=== PATIENT | male | born 1940 | race Caucasian/White ===

== ENCOUNTER → 2020-06-17 09:54 | Outpatient (BNVA) | payer MEDICARE, OTHER, SELFPAY | PROVIDERS: Referring Provider Dermatology; Visit Provider Dermatology | DX: Z85.828 Personal history of other malignant neoplasm of skin (principal); Z12.83 Encounter for screening for malignant neoplasm of skin; L57.0 Actinic keratosis; L82.1 Other seborrheic keratosis; I87.8 Other specified disorders of veins; L81.4 Other melanin hyperpigmentation | CPT/HCPCS: 17000; 17003; 99203 ==

== ENCOUNTER 2020-10-08 09:00 | Outpatient (CLI) | payer MEDICARE, OTHER, SELFPAY ==
--- NOTE | 2020-10-08 14:11 | ONC CON_ITS ---
Dr. Evans New Patient Note Patient: Benji Jensen Unit #: [id number]: 1940 Dicatated By: Douglas Evans M.D.Date of Visit: Oct 08, 2020 Onc MED New Patient/Consult Referring Physician: Yamil Day Chief Complaint: Prostate cancer. History of Present Illness: This is an 80-year-old man with [place] score 7 (4+3) adenocarcinoma of the prostate, diagnosed by MRI directed biopsy of the prostate in August 2016. By clinical evaluation his disease is stage IIC (T2c, N0, M0). He had been followed by Dr. Yamil Day for an elevated PSA level. His initial prostate biopsy which was done around the year 1999 was benign. PSA at that point was 6.5 ng/mL, but it subsequently declined to 1.2 ng/mL. The PSA gradually increased thereafter. By September 2015 it was back up to 4.8. As of June 2016 it was up to 5.3 ng/mL. MRI at that point showed suspicious abnormality in the left peripheral zone. On September 08, 2016 he underwent MRI directed biopsy of the prostate. His prebiopsy PSA was 6.4. Pathology showed adenocarcinoma of the usual acinar type involving multiple cores. The core from the left mid prostate, she apparently corresponded to the MRI abnormality, showed a Kim score of 7 (4+3). Cores from the right base showed [place] score 7 (3+4). Cores from the right apex, left apex, and left base all showed [place] score 6 (3+3). His PTEN-erg genetic tests showed very low risk disease. With those findings, he was followed on observation/expectant management. During subsequent follow-up there was just gradual increase in the PSA level. As of July 2018 it was 8.5 ng/mL and as of July 2019 it was 10.5 ng/mL. On the most recent study, from August 10, 2020 it had increased more significantly, to 13.4 ng/mL, with his PSA doubling time calculating to 4 years. His staging Ax[facility] PET/CT on August 10, 2020 showed prostatomegaly with abnormal hypermetabolism diffusely involving the prostate and with focal hypermetabolism within the left peripheral zone with maximum SUV 13.4. An additional focus of increased uptake within the right peripheral zone had a maximum SUV of 8.6. A probable BPH nodule was noted to indent the base of the urinary bladder. There was no evidence of tumor involvement in the seminal vesicles and there was no gross evidence of extraprostatic tumor extension. Mildly prominent bilateral inguinal lymph nodes had mildly increased radiotracer uptake favoring reactive disease with the largest node measuring 1.0 x 1.1 cm with maximum SUV 2.9. There were no suspicious lymph nodes noted within the abdomen or pelvis and there were no concerning osseous lesions. He has been feeling good generally, though he has longstanding peripheral neuropathy affecting the lower extremities and he has some associated chronic lower extremity edema which does limit his activity somewhat. His ECOG score is 1. He has good appetite. His weight has been stable. He has no fever, night sweats, or hot flashes. He has no significant voiding symptoms. He does have nocturia 1 or 2 times, that has been a stable pattern. He has not been aware of any significant change in his bladder function during the past several years. He is a little short of breath with activity. He has a history of atrial fibrillation for which he has remained on chronic anticoagulation. He has not had chest pain. He recently had some diarrhea, but that was associated with metformin, and it does appear to have resolved. He has some back pain and he also has neuropathy pain along with numbness/tingling in the lower extremities. He says the neuropathy now is beginning to affect his hands as well. He also has some difficulty with balance. He has some chronic anxiety. Past Medical History: His medical history includes atrial fibrillation, chronic anxiety, hypertension, hypertriglyceridemia, peripheral neuropathy, prostate cancer, and type II diabetes. Past Surgical History: His surgical/procedural history includes MRI directed biopsy of the prostate in 2016 and a cardiac ablation procedure for atrial fibrillation. Medications: Eliquis 1 Tablet (of 5 mg) Oral b.i.d., hydroCHLOROthiazide 1 Tablet (of 25 mg) Oral daily, Lisinopril 1 Tablet (of 10 mg) Oral daily, LORazepam 1 Tablet (of 1 mg) Oral at bedtime Allergies: No Known Allergies. Social History: Mr. Jensen is . He is a non-smoker. He does not drink alcohol. Family History: Father had COPD and mother had heart disease. A brother committed suicide. One sister is in good health at age 72. Review Of Symptoms: Constitutional - He generally feels okay. His energy is not great. He has some activity limitations related to wearing orthotics. He is able to do light outside work. His appetite is good and his weight is stable. No fever, night sweats, or hot flashes. ECOG score is 1, Eyes - He has noticed some decline in visual acuity. 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 He also complains of tinnitus. No sinus congestion/drainage. No mouth sores. No sore throat or difficulty swallowing. His hearing has decreased, Hematologic/Lymphatic - He bruises easily, Respiratory - He has a little shortness of breath with activity. No cough. No pleuritic pain or hemoptysis, Cardiovascular - No angina pain. He has a history of atrial fibrillation and his heart is irregular, Gastrointestinal - No nausea or vomiting. No heartburn or acid reflux. He had diarrhea while taking metformin, but that has improved. No blood in the stool or black stools, Genitourinary (M) - No dysuria or hematuria. No urinary frequency. He has nocturia x1 or 2. No urgency or incontinence, Musculoskeletal - He has some back pain and he has pain in his legs and feet, Integumentary - No skin complications, Neurologic - No headache or dizziness. He has longstanding neuropathy with numbness/tingling and sometimes pain in his legs and feet. It is now starting to affect his hands and fingers. No other focal neurologic symptoms, Psychiatric - He has some anxiety. No depression. No insomnia. Vital Signs: Performed on Oct 08, 2020 09:52: 0, 29.70, 2.41 sq.m, 76.00 in, 97 %, 85 /min, 18 /min, 162/86 mm(hg) (HIGH), 98.2 F (LOW), and 244.0 lbs (HIGH). Physical Examination: Constitutional - He looks pretty good generally, though he does have somewhat limited mobility, Eyes - Sclerae nonicteric. Conjunctivae clear, ENMT - No lesions noted in the oral cavity, Hematologic/Lymphatic - No cervical, clavicular, or axillary adenopathy, Respiratory - Lungs are clear with good air movement bilaterally, Cardiovascular - Heart rhythm is irregular. There is no murmur, gallop, or rub noted, Abdomen - Soft and non-tender. Liver and spleen are not enlarged. There is no abdominal mass or ascites noted and there is no inguinal adenopathy, Extremities - There is 2+ lower extremity edema, which appears chronic, Integumentary - No rashes. No suspicious skin lesions noted, Neurologic - He has difficulty ambulating due to the neuropathy in the lower extremities. I did not attempt to perform a detailed neurologic exam. He does not appear to have any other obvious deficits. Impression: 1. Patient with Kim score 7 (4+3) adenocarcinoma of the prostate, diagnosed by MRI directed biopsy of the prostate in August 2016. His PTEN-erg genetic studies were very low risk, and he was followed on observation/expectant management. 2. During follow-up there has been gradual increase in the PSA level, now to 13.3 ng/mL, representing a doubling time of 4 years. His staging Axumin PET/CT shows abnormal hypermetabolism diffusely involving the prostate with the greatest uptake within the left peripheral zone, maximum SUV 13.4, and with an additional focus of increased uptake was noted within the right peripheral zone, maximum SUV 8.6. There were no other areas of significant uptake on that study. As such, by clinical evaluation his disease appears to be stage IIC (T2c, N0, M0). His other medical illnesses include: 3. Hypertension. 4. Hypertriglyceridemia. 5. Type 2 diabetes. 6. He has longstanding peripheral neuropathy. Plan: The pathology results, the Ax[facility] PET/CT findings, and lab results were reviewed with the patient and we discussed the clinic complications. His prostate cancer was initially diagnosed in 2015. His disease was involving both lobes but it was confined to the prostate. His prognostic indicators were favorable, and he has been followed on observation/expectant management. He has had a gradual further increase in the PSA level, with his doubling time calculating to 4 years. By Axumin PET/CT, his disease still appears to be confined to the prostate. He is aware that his disease would potentially still be treatable with radiation. However, he does have some coexisting morbidity, the most significant of which is the peripheral neuropathy. He also appears to have no local symptoms associated with prostate cancer, and he has not been aware of any significant change in his bladder function over the past several years. As such, I think it is very reasonable to continue to manage this with observation, and he actually is very comfortable with continuing with that approach. I will present this to the radiation oncologist and I will arrange for a formal consultation as he deems appropriate. Otherwise, I will just plan to monitor him at 3-month intervals. Signed By: Douglas Evans M.D. <<Signature on File>>
== END 2020-10-08 09:01 | disposition home or self-care (01) ==
LOC: ONCMED 09:04
PROVIDERS: PCP Family Medicine; Visit Provider Internal Medicine Medical Oncology
DX: C61 Malignant neoplasm of prostate (principal); R97.21 Rising PSA following treatment for malignant neoplasm of prostate; E11.42 Type 2 diabetes mellitus with diabetic polyneuropathy; I10 Essential (primary) hypertension; E78.1 Pure hyperglyceridemia; I48.91 Unspecified atrial fibrillation; Z79.01 Long term (current) use of anticoagulants

== ENCOUNTER 2020-11-03 09:52 | Outpatient (CLI) | payer MEDICARE, OTHER, SELFPAY ==
--- NOTE | 2020-11-03 11:17 | N.ONRAD NP_ITS ---
Radiation Oncology Consultation Patient Name: Benji Jensen Date of : 1940 Date of Service: 11/03/2020 Attending Physician: Henry Devries M.D. Benji Jensen was seen in consultation this morning at the request of Douglas Evans M.D. for consideration of prostate radiotherapy for the management of unfavorable intermediate risk prostate cancer. He initially was identified to have an elevated PSA level (6.4 ng/mL) in June 2016. An acinar adenocarcinoma of the prostate gland (Kim pattern 4+3; left mid gland) was diagnosed. Within the TRUS biopsy specimen, additional cores demonstrated [place] patterns of 3+3 = 6 (3 specimens) and 3+4 = 7 (2 cores). The patient elected observation for initial management. In July, his PSA was 13.4 ng/mL. An F???18???Axumin PET scan was completed on September 14, 2020. Imaging failed to identify metastatic disease. I discussed the patient's AJCC clinical stage IIC (T1CN0) unfavorable immediate risk prostate cancer and the NCCN guidelines for observation in men with an estimated survival of less than 10 years. However, radiotherapy and androgen deprivation therapy (4 to 6 months) with or without brachytherapy is a treatment option. He would like to evaluate his choices treatment prior to making a final decision. Signed by: Dr. Henry Devries 11/03/2020 11:15:39 AM
== END 2020-11-03 09:53 | disposition home or self-care (01) ==
PROVIDERS: PCP Family Medicine; Visit Provider Radiology Radiation Oncology
DX: C61 Malignant neoplasm of prostate (principal)
CPT/HCPCS: 99214

== ENCOUNTER 2021-01-19 09:58 | Outpatient (CLI) | payer MEDICARE, OTHER, SELFPAY ==
[2021-01-19 11:00] LABS: Basophils % 0.5 %; Eosinophils # 0.1 10^3/uL (0.0-0.8); Eosinophils % 1.8 %; Hemoglobin 15.8 g/dL (11.7-16.6); Lymphocytes # 1.3 10^3/uL (0.8-4.8); Lymphocytes % 29.3 %; Mean Corpuscular HGB Conc 32.9 g/dL (30.0-36.0); Mean Corpuscular Volume 91.3 fL (80-94); Mean Platelet Volume 10.8 fL (7.4-10.4); Monocytes # 0.3 10^3/uL (0.2-0.9); Monocytes % 7.3 %; Neutrophils # 2.66 10^3/uL (1.8-7.7); Neutrophils % 60.9 %; Nucleated Red Blood Cells % 0 %; Platelet Count 173 10^3/cmm (130-400); Red Blood Count 5.26 10^6/uL (4.1-5.3); Red Cell Distribution Width 12.8 % (12.1-15.1); White Blood Count 4.4 10^3/uL (4.0-10.0)
== END 2021-01-19 09:59 | disposition home or self-care (01) ==
LOC: ONCMED 10:03
PROVIDERS: PCP Family Medicine; Visit Provider Nurse Practitioner
DX: C61 Malignant neoplasm of prostate (principal)
CPT/HCPCS: 85025

== ENCOUNTER 2021-01-20 05:57 | Outpatient (CLI) | payer MEDICARE, OTHER, SELFPAY ==
[2021-01-20] MEDS: lidocaine 1% INJ 20 mL INJECTION (08:41)
[2021-01-20] MEDS: goserelin acetate 10.8 mg Implant IM (08:52)
--- NOTE | 2021-01-21 06:52 | ONC FU_ITS ---
Dr. Evans Patient Follow-Up Note Patient: Benji Jensen Unit #: [id number]: 1940 Dicatated By: Douglas Evans M.D.Date of Visit:Jan 20, 2021 Onc Med Follow-up/Prog Note Chief Complaint: Prostate cancer. History of Present Illness: This is an 80-year-old man with [place] score 7 (4+3) adenocarcinoma of the prostate, diagnosed by MRI directed biopsy of the prostate in August 2016. By clinical evaluation his disease is stage IIC (T2c, N0, M0). He had been followed by Dr. Yamil Day for an elevated PSA level. His initial prostate biopsy which was done around the year 1999 was benign. PSA at that point was 6.5 ng/mL, but it subsequently declined to 1.2 ng/mL. The PSA gradually increased thereafter. By September 2015 it was back up to 4.8. As of June 2016 it was up to 5.3 ng/mL. MRI at that point showed suspicious abnormality in the left peripheral zone. On September 08, 2016 he underwent MRI directed biopsy of the prostate. His prebiopsy PSA was 6.4. Pathology showed adenocarcinoma of the usual acinar type involving multiple cores. The core from the left mid prostate, she apparently corresponded to the MRI abnormality, showed a [place] score of 7 (4+3). Cores from the right base showed Kim score 7 (3+4). Cores from the right apex, left apex, and left base all showed [place] score 6 (3+3). His PTEN-erg genetic tests showed very low risk disease. With those findings, he was followed on observation/expectant management. During subsequent follow-up there was just gradual increase in the PSA level. As of July 2018 it was 8.5 ng/mL and as of July 2019 it was 10.5 ng/mL. On the most recent study, from August 10, 2020 it had increased more significantly, to 13.4 ng/mL, with his PSA doubling time calculating to 4 years. His staging [facility] PET/CT on August 10, 2020 showed prostatomegaly with abnormal hypermetabolism diffusely involving the prostate and with focal hypermetabolism within the left peripheral zone with maximum SUV 13.4. An additional focus of increased uptake within the right peripheral zone had a maximum SUV of 8.6. A probable BPH nodule was noted to indent the base of the urinary bladder. There was no evidence of tumor involvement in the seminal vesicles and there was no gross evidence of extraprostatic tumor extension. Mildly prominent bilateral inguinal lymph nodes had mildly increased radiotracer uptake favoring reactive disease with the largest node measuring 1.0 x 1.1 cm with maximum SUV 2.9. There were no suspicious lymph nodes noted within the abdomen or pelvis and there were no concerning osseous lesions. I had seen him initially on 10/08/2020. At that time he was undecided between treating or observing the prostate cancer, but he did agree to meet with the radiation oncologist. Ultimately, he did opt to proceed with treatment, and with intermediate risk disease he is recommended to have 6 months of concurrent androgen deprivation therapy. He had already started his 14 days of bicalutamide. He has been feeling pretty good generally. His energy is about the same as that he may have a little more fatigue, attributable to his diabetes medication. His ECOG score is 1. He has good appetite. He is not having fever, night sweats, or hot flashes. He has no shortness of breath, cough, or chest pain. He does have chronic atrial fibrillation. He has no GI complaints other than his bowel function seem to be a little different, though still adequate. Bladder function also remains adequate, though he sometimes has urgency with urination. He has joint pain, mainly in the wrists and shoulders, and he has neuropathy pain in his legs and feet. Medications: Eliquis 1 Tablet (of 5 mg) Oral b.i.d., hydroCHLOROthiazide 1 Tablet (of 25 mg) Oral daily, Lisinopril 1 Tablet (of 10 mg) Oral daily, LORazepam 1 Tablet (of 1 mg) Oral at bedtime Allergies: No Known Allergies. Vital Signs: Performed on Jan 20, 2021 09:00 Height - 76.00 in BP - 135/85 mm(hg) Performed on Jan 20, 2021 08:04 Height - 76.00 in Weight - 236 lbs (LOW) BSA - 2.38 sq.m BMI - 28.73 Temperature - 97.2 F (LOW) Pulse - 96 /min Respiration - 17 /min BP - 160/106 mm(hg) (HIGH) O2 Sat - 97 % Pain - 0 Physical Examination: Constitutional - He looks pretty good generally, Eyes - Sclerae nonicteric. Conjunctivae clear, ENMT - No lesions noted in the oral cavity, Hematologic/Lymphatic - No cervical, clavicular, or axillary adenopathy, Respiratory - Lungs are clear with good air movement bilaterally, Cardiovascular - Heart rhythm is a little irregular. There is no murmur, gallop, or rub noted, Abdomen - Soft. Liver and spleen are not enlarged. There is no abdominal mass or ascites noted and there is no inguinal adenopathy, Extremities - There is mild lower extremity edema, Neurologic - He has difficulty ambulating due to the neuropathy in the lower extremities. Lab/Imaging: His repeat PSA level on 01/05/2021 was slightly higher at 16.3 ng/mL. Problem List: 1. Kim score 7 (4+3) adenocarcinoma of the prostate, diagnosed by MRI directed biopsy of the prostate in August 2016, by clinical evaluation now stage IIC (T2c, N0, M0). 2. Hypertension. 3. Hypertriglyceridemia. 4. Type 2 diabetes. 5. Atrial fibrillation. 6. He has longstanding peripheral neuropathy. Problems Addressed with this Encounter and Plan: Patient with [place] score 7 (4+3) adenocarcinoma of the prostate, diagnosed by MRI directed biopsy of the prostate in August 2016. His PTEN-erg genetic studies were very low risk, and he was initially followed on observation/expectant management. During follow-up there has been gradual increase in the PSA level, up to 13.3 ng/mL, representing a doubling time of 4 years. His staging Axumin PET/CT shows abnormal hypermetabolism diffusely involving the prostate with the greatest uptake within the left peripheral zone, maximum SUV 13.4, and with an additional focus of increased uptake was noted within the right peripheral zone, maximum SUV 8.6. There were no other areas of significant uptake on that study. As such, by clinical evaluation his disease appeared to be stage IIC (T2c, N0, M0). He was initially undecided about treatment but he has now opted to proceed with radiation. With intermediate risk disease, he has recommended to have concurrent androgen deprivation therapy for 6 months. He has started bicalutamide 50 mg daily for 14 days, and he will now be given his initial dose of Zoladex 10.8 mg. I reviewed anticipated side effects including the potential for hot flashes, fatigue, and/or mood changes, among others. I will recheck a PSA level prior to starting radiation, which will be in 8 weeks. I will see him again in 3 months. Signed By: Douglas Evans M.D. <<Signature on File>>
== END 2021-01-20 05:58 | disposition home or self-care (01) ==
LOC: ONCMED 05:59
PROVIDERS: PCP Family Medicine; Visit Provider Internal Medicine Medical Oncology
DX: C61 Malignant neoplasm of prostate (principal); Z79.818 Long term (current) use of other agents affecting estrogen receptors and estrogen levels
CPT/HCPCS: 96372; 96402; 99214; J9202

== ENCOUNTER 2021-03-25 05:53 | Outpatient (RCR) | payer MEDICARE, OTHER, SELFPAY ==
--- NOTE | 2021-03-10 | CT_ITS ---
Radiation Therapy Planning CT images; total exam DLP: 959.18 mGy-cm MTDD
--- NOTE | 2021-03-15 11:18 | ONCRAD TMN_ITS ---
Radiation Oncology Treatment Management Note Patient Name: Benji Jensen Date of : 1940 Date of Service: 03/15/2021 Attending Physician: Henry Devries M.D. Benji Jensen is an 80 year old white male diagnosed with a clinical stage IIC (T1CN0) unfavorable immediate risk prostate cancer. An elevated PSA level (6.4 ng/mL) was identified in June 2016. A TRUS biopsy diagnosed an acinar adenocarcinoma of the prostate gland with a Kim pattern 4+3 involving the left mid gland with additional cores demonstrated Kim patterns of 3+3 = 6 (3 specimens) and 3+4 = 7 (2 cores). The patient elected observation for initial management. In December 2020, his PSA was 16.3 ng/mL and he requested treatment. He was prescribed total androgen suppression - Casodex & Zoladex (administered January 20, 2021). He presents for radiotherapy planning. The patient has received 6 Gy of a prescribed 60 Lorenzo to the prostate gland and proximal seminal vesicles with an intensity modulated radiotherapy plan utilizing a step and shoot treatment technique. Upon review of systems, he denied any gastrointestinal complaints related to radiotherapy. On physical examination, the patient weighed 236 lbs. His temperature was 98.1???F with a blood pressure of 148/105 mmHg. The pulse was 70 bpm and his respiratory rate was 18. No erythema within the treatment sen. Continue hypofractionated prostate radiotherapy as prescribed. Signed by: Dr. Henry Devries 03/15/2021 11:17:30 AM
--- NOTE | 2021-03-22 14:28 | ONCRAD TMN_ITS ---
Radiation Oncology Weekly Treatment Management Patient: Mikey Gallagher MR#: [id number] : 1940> Attending Physician: Dr. Taco Stanley Date of Service: 03/22/2021 Referring Physician(s) : Dr. Evans Diagnosis: C61 - Malignant neoplasm of prostate, Diagnosed 07/14/2016 (Active) Stage IIC, T2c, N0, M0, P>=10<20, G3 Radiotherapy to date: Course: Prostate 2020, Treatment Site: Prostate Ca, Ref. ID: [id number], Energy: 15X, Dose/Fx (cGy): 300, #Fx: , Dose Correction (cGy): 0, Total Dose (cGy): 2,100, Start Date: 03/14/2021, Elapsed Days: 8 Reason for visit: The patient is being seen today as part of their regularly scheduled weekly on treatment visits to assess for acute toxicities from radiotherapy. Review of Systems: Notes some increase in urinary frequency and incomplete emptying. No burning. No interest in any treatment for this. Bladder full for RT. Active in daily life Vital Signs: Performed on 03/22/2021 1:58 PM BMI - 28.897 kg/m2 (high), Height - 76.00 in, Weight - 237.4 lbs, Temperature - 97.7 f, Pulse - 70, Respiration - 16, O2 Sat - 96 %, Pain - 0 and BP - 147/ 96 mm(hg)(high). Physical Exam: omitted Imaging: Radiation therapy imaging related to accurate target localization (i.e. KV, MV and CBCT) was reviewed. Appropriate changes, if any, were made to ensure treatment accuracy. Plan: good tolerance of treatment. Continue as planned. Signed by: Dr. Taco Stanley 03/22/2021 2:27:31 PM
== END 2021-03-28 23:59 | disposition home or self-care (01) ==
LOC: ONCMED 05:53
PROVIDERS: Internal Medicine Medical Oncology; PCP Family Medicine; Visit Provider Radiology Radiation Oncology
DX: Z51.0 Encounter for antineoplastic radiation therapy (principal); C61 Malignant neoplasm of prostate; Z79.899 Other long term (current) drug therapy
CPT/HCPCS: 36415; 77300; 77301; 77334; 77336; 77338; 77385; 77470; 84153

== ENCOUNTER 2021-04-25 05:35 | Outpatient (RCR) | payer MEDICARE, OTHER, SELFPAY ==
--- NOTE | 2021-03-29 14:40 | ONCRAD TMN_ITS ---
Radiation Oncology Treatment Management Note Patient Name: Benji Jensen Date of : 1940 Date of Service: 03/29/2021 Attending Physician: Henry Devries M.D. Benji Jensen is an 80 year old white male diagnosed with a clinical stage IIC (T1CN0) unfavorable immediate risk prostate cancer. An elevated PSA level (6.4 ng/mL) was identified in June 2016. A TRUS biopsy diagnosed an acinar adenocarcinoma of the prostate gland with a [place] pattern 4+3 involving the left mid gland with additional cores demonstrated [place] patterns of 3+3 = 6 (3 specimens) and 3+4 = 7 (2 cores). The patient elected observation for initial management. In December 2020, his PSA was 16.3 ng/mL and he requested treatment. He was prescribed total androgen suppression - Casodex & Zoladex (administered January 20, 2021). He presents for radiotherapy planning. The patient has received 33 Gy of a prescribed 60 Lorenzo to the prostate gland and proximal seminal vesicles with an intensity modulated radiotherapy plan utilizing a step and shoot treatment technique. Upon review of systems, he denied any gastrointestinal complaints related to radiotherapy. He described nocturia (however, he drinks throughout the night). On physical examination, the patient weighed 232 lbs. His temperature was 97.8???F with a blood pressure of 158/108 mmHg. The pulse was 62 bpm and his respiratory rate was 18. No erythema within the treatment sen. Continue hypofractionated prostate radiotherapy as planned. Signed by: Dr. Henry Devries 03/29/2021 2:38:18 PM
--- NOTE | 2021-04-05 13:58 | ONCRAD TMN_ITS ---
Radiation Oncology Treatment Management Note Patient Name: Benji Jensen Date of : 1940 Date of Service: 04/05/2021 Attending Physician: Henry Devries M.D. Benji Jensen is an 80 year old white male diagnosed with a clinical stage IIC (T1CN0) unfavorable immediate risk prostate cancer. An elevated PSA level (6.4 ng/mL) was identified in June 2016. A TRUS biopsy diagnosed an acinar adenocarcinoma of the prostate gland with a [place] pattern 4+3 involving the left mid gland with additional cores demonstrated [place] patterns of 3+3 = 6 (3 specimens) and 3+4 = 7 (2 cores). The patient elected observation for initial management. In December 2020, his PSA was 16.3 ng/mL and he requested treatment. He was prescribed total androgen suppression - Casodex & Zoladex (administered January 20, 2021). He presents for radiotherapy planning. The patient has received 48 Gy of a prescribed 60 Lorenzo to the prostate gland and proximal seminal vesicles with an intensity modulated radiotherapy plan utilizing a step and shoot treatment technique. Upon review of systems, he denied any gastrointestinal complaints related to radiotherapy. He described nocturia (2-3 times which is his baseline). On physical examination, the patient weighed 236 lbs. His temperature was 97.9???F with a blood pressure of 147/88 mmHg. The pulse was 76 bpm and his respiratory rate was 20. No erythema within the treatment sen. Continue hypofractionated prostate radiotherapy as prescribed. Signed by: Dr. Henry Devries 04/05/2021 1:57:12 PM
[2021-04-25 12:34] LABS: Basophils % 0.6 %; Eosinophils # 0.1 10^3/uL (0.0-0.8); Hematocrit 43.4 % (42.0-52.0); Hemoglobin 14.1 g/dL (11.7-16.6); Lymphocytes # 0.7 10^3/uL (0.8-4.8); Lymphocytes % 14.1 %; Mean Corpuscular HGB Conc 32.5 g/dL (30.0-36.0); Mean Corpuscular Hemoglobin 29.7 pg (28.0-34.0); Mean Corpuscular Volume 91.6 fL (80-94); Mean Platelet Volume 10.4 fL (7.4-10.4); Monocytes # 0.3 10^3/uL (0.2-0.9); Neutrophils # 3.92 10^3/uL (1.8-7.7); Neutrophils % 77.9 %; Nucleated Red Blood Cells % 0 %; Platelet Count 204 10^3/cmm (130-400); Red Blood Count 4.74 10^6/uL (4.1-5.3); Red Cell Distribution Width 13.1 % (12.1-15.1)
[2021-04-25] MEDS: lidocaine 1% INJ 20 mL INJECTION (13:00)
[2021-04-25 13:04] LABS: Prostate Specific Antigen 0.154 ng/mL (0-4)
[2021-04-25 13:09] LABS: Testosterone Total < 2.5 ng/dL (193-740)
[2021-04-25 13:19] LABS: Alanine Aminotransferase 11 U/L (0-41); Albumin Level 3.6 g/dL (3.5-5.2); Alkaline Phosphatase 57 IU/L (40-130); Anion Gap 13.9 (5-19); Aspartate Amino Transferase 16 U/L (0-40); Blood Urea Nitrogen 16 mg/dL (8-23); Calcium 9.1 mg/dL (8.5-10.5); Carbon Dioxide 25 mmol/L (22-29); Chloride 102 mmol/L (98-107); Globulin 2.8 g/dL (1.3-4.6); Glucose 206 mg/dL (65-115); Osmolality Calculated 291 mOsm/kg (285-295); Potassium 3.9 mmol/L (3.5-5.1); Sodium 137 mmol/L (136-145); Total Bilirubin 0.3 mg/dL (0.15-1.2); Total Protein 6.4 g/dL (6.6-8.7)
[2021-04-25] MEDS: goserelin acetate 10.8 mg Implant SUBCUT (13:30)
--- NOTE | 2021-04-29 08:12 | ONC FU_ITS ---
Dr. Evans Patient Follow-Up Note Patient: Benji Jensen Unit #: [id number]: 1940 Dicatated By: Douglas Evans M.D.Date of Visit:Apr 25, 2021 Onc Med Follow-up/Prog Note Chief Complaint: Prostate cancer. History of Present Illness: This is an 80-year-old man with Bur[place]ick score 7 (4+3) adenocarcinoma of the prostate, diagnosed by MRI directed biopsy of the prostate in August 2016. By clinical evaluation his disease is stage IIC (T2c, N0, M0). He had been followed by Dr. Yamil Day for an elevated PSA level. His initial prostate biopsy which was done around the year 1999 was benign. PSA at that point was 6.5 ng/mL, but it subsequently declined to 1.2 ng/mL. The PSA gradually increased thereafter. By September 2015 it was back up to 4.8. As of June 2016 it was up to 5.3 ng/mL. MRI at that point showed suspicious abnormality in the left peripheral zone. On September 08, 2016 he underwent MRI directed biopsy of the prostate. His prebiopsy PSA was 6.4. Pathology showed adenocarcinoma of the usual acinar type involving multiple cores. The core from the left mid prostate, she apparently corresponded to the MRI abnormality, showed a Burdick score of 7 (4+3). Cores from the right base showed Kim score 7 (3+4). Cores from the right apex, left apex, and left base all showed Burdick score 6 (3+3). His PTEN-erg genetic tests showed very low risk disease. With those findings, he was followed on observation/expectant management. During subsequent follow-up there was just gradual increase in the PSA level. As of July 2018 it was 8.5 ng/mL and as of July 2019 it was 10.5 ng/mL. On the most recent study, from August 10, 2020 it had increased more significantly, to 13.4 ng/mL, with his PSA doubling time calculating to 4 years. His staging [facility] PET/CT on August 10, 2020 showed prostatomegaly with abnormal hypermetabolism diffusely involving the prostate and with focal hypermetabolism within the left peripheral zone with maximum SUV 13.4. An additional focus of increased uptake within the right peripheral zone had a maximum SUV of 8.6. A probable BPH nodule was noted to indent the base of the urinary bladder. There was no evidence of tumor involvement in the seminal vesicles and there was no gross evidence of extraprostatic tumor extension. Mildly prominent bilateral inguinal lymph nodes had mildly increased radiotracer uptake favoring reactive disease with the largest node measuring 1.0 x 1.1 cm with maximum SUV 2.9. There were no suspicious lymph nodes noted within the abdomen or pelvis and there were no concerning osseous lesions. I had seen him initially on 10/08/2020. At that time he was undecided between treating or observing the prostate cancer, but he did agree to meet with the radiation oncologist, and he ultimately did opt to proceed with treatment. With intermediate risk disease he was recommended to have 6 months of concurrent androgen deprivation therapy. His medical history is also significant for longstanding peripheral neuropathy involving the lower extremities. His other medical illnesses include hypertension, hypertriglyceridemia, type 2 diabetes, and atrial fibrillation. He previously underwent an ablation procedure for the atrial fibrillation. He is a non-smoker. INTERIM HISTORY: He began radiation on 03/14/2021. He then began androgen deprivation therapy with Zoladex 10.8 mg together with 14 days of Casodex on 01/20/2021. He completed radiation on 04/11/2021 to a total dose of 6000 cGy, administered in 30 fractions. His pretreatment PSA level was 16.3 ng/mL, and as of 03/10/2021 it had decreased to 2.030 ng/mL. He is seen for a follow-up visit. He indicates he had developed some lower GI symptoms and diarrhea towards the end of his radiation, those are getting better now. His energy also is a little better. His ECOG score is 1. He has good appetite. He sometimes has a slight fever in the late afternoon, maximum 99 200 degrees. He is having some hot flashes, but not too bad. He has some allergy related sinus symptoms. He has no shortness of breath, cough, or chest pain. He has no other GI complaints. His bladder function is improving. He does have some joint pain, that is chronic. His neuropathy symptoms are unchanged. Medications: Eliquis 1 Tablet (of 5 mg) Oral b.i.d., Jardiance Tablet Oral daily, Lisinopril 1 Tablet (of 10 mg) Oral daily, LORazepam 1 Tablet (of 1 mg) Oral at bedtime Allergies: No Known Allergies. Vital Signs: Performed on Apr 25, 2021 12:47 Height - 76.00 in Weight - 233.2 lbs (LOW) BSA - 2.37 sq.m BMI - 28.39 Temperature - 96.6 F (LOW) Pulse - 71 /min Respiration - 18 /min BP - 162/86 mm(hg) (HIGH) O2 Sat - 96 % Pain - 0 Fatigue - 6 Physical Examination: Constitutional - He looks pretty good generally, Eyes - Sclerae nonicteric. Conjunctivae clear, ENMT - No lesions noted in the oral cavity, Hematologic/Lymphatic - No cervical, clavicular, or axillary adenopathy, Respiratory - Lungs are clear with good air movement bilaterally, Cardiovascular - Heart rhythm is irregular. There is no murmur, gallop, or rub noted, Abdomen - Soft. Liver and spleen are not enlarged. There is no abdominal mass or ascites noted and there is no inguinal adenopathy, Extremities - Mild lower extremity edema, Neurologic - His lower extremity neuropathy appears unchanged. Lab/Imaging: Test performed on Apr 25, 2021 11:23 Sodium 137 mmol/L Testosterone, Total < 2.5 ng/dL Potassium 3.9 mmol/L Chloride 102 mmol/L CO2 25 mmol/L Anion Gap 13.9 BUN 16 mg/dL Creatinine 0.6 mg/dL Cr Clearance (Est) 146.92 mL/min Glucose 206 mg/dL Osmolality - Calculated 291 mOsm/kg Calcium 9.1 mg/dL Protein, Total 6.4 g/dL Albumin 3.6 g/dL Globulin 2.8 g/dL Bilirubin, Total 0.3 mg/dL ALT (SGPT) 11 U/L AST (SGOT) 16 U/L Alkaline Phosphatase 57 IU/L WBC 5.0 10 3/uL RBC 4.74 10 6/uL HGB 14.1 g/dL HCT 43.4 % MCV 91.6 fL MCH 29.7 pg MCHC 32.5 g/dL RDW 13.1 % Platelet Count 204 10 3/cmm MPV 10.4 fL Neutrophils 3.92 10 3/uL Lymphocytes 0.7 10 3/uL Monocytes 0.3 10 3/uL Eosinophils 0.1 10 3/uL Basophils 0.0 10 3/uL Neutrophil % 77.9 % Lymphocyte % 14.1 % Monocyte % 6.0 % Eosinophil % 1.0 % Basophils % 0.6 % NRBC % 0 % PSA 0.154 ng/mL Problem List: 1. Burdick score 7 (4+3) adenocarcinoma of the prostate, diagnosed by MRI directed biopsy of the prostate in August 2016, by clinical evaluation now stage IIC (T2c, N0, M0). 2. Hypertension. 3. Hypertriglyceridemia. 4. Type 2 diabetes. 5. Atrial fibrillation. 6. He has longstanding peripheral neuropathy. Problems Addressed with this Encounter and Plan: Patient with Kim score 7 (4+3) adenocarcinoma of the prostate, diagnosed by MRI directed biopsy of the prostate in August 2016. His PTEN-erg genetic studies were very low risk, and he was initially followed on observation/expectant management. During follow-up there has been gradual increase in the PSA level, up to 13.3 ng/mL, representing a doubling time of 4 years. His staging [facility] PET/CT shows abnormal hypermetabolism diffusely involving the prostate with the greatest uptake within the left peripheral zone, maximum SUV 13.4, and with an additional focus of increased uptake was noted within the right peripheral zone, maximum SUV 8.6. There were no other areas of significant uptake on that study. As such, by clinical evaluation his disease appeared to be stage IIC (T2c, N0, M0). He was initially undecided about treatment but he ultimatelyopted to proceed with radiation. With intermediate risk disease, he was recommended to have concurrent androgen deprivation therapy for 6 months. He began radiation on 03/14/2021. He then began androgen deprivation therapy with Zoladex 10.8 mg together with 14 days of Casodex on 01/20/2021. He completed radiation on 04/11/2021 to a total dose of 6000 cGy, administered in 30 fractions. His pretreatment PSA level was 16.3 ng/mL, and as of 03/10/2021 it had decreased to 2.030 ng/mL. Thus far his tolerated his treatment very well, and overall he is doing well clinically. He has shown a good response by PSA level, which is now down to 0.154 ng/mL. He will continue now with his 2nd dose of Zoladex at 10.8 mg by subcutaneous injection. He will be scheduled for a follow-up visit in 3 months. Signed By: Douglas Evans M.D. <<Signature on File>>
== END 2021-04-27 23:59 | disposition home or self-care (01) ==
LOC: ONCMED 05:35
PROVIDERS: PCP Family Medicine; Visit Provider Internal Medicine Medical Oncology
DX: Z51.0 Encounter for antineoplastic radiation therapy (principal); Z51.11 Encounter for antineoplastic chemotherapy; C61 Malignant neoplasm of prostate; I10 Essential (primary) hypertension; E78.1 Pure hyperglyceridemia; E11.42 Type 2 diabetes mellitus with diabetic polyneuropathy; I48.91 Unspecified atrial fibrillation; Z79.899 Other long term (current) drug therapy
CPT/HCPCS: 36415; 77336; 77385; 80053; 84153; 84403; 85025; 96372; 96402; 99214; J9202

== ENCOUNTER 2021-05-06 06:18 | Outpatient (RCR) | payer MEDICARE, OTHER, SELFPAY ==
--- NOTE | 2021-05-06 10:18 | ONCRAD EPV_ITS ---
Radiation Oncology Follow-Up Note Patient Name: Benji Jensen Date of : 1940 Date of Service: 05/06/2021 Attending Physician: Henry Devries M.D. Benji Jensen returned to my office this morning for a routinely scheduled post-radiotherapy appointment. He completed prostate radiotherapy in March for the management of a clinical stage IIC (T1CN0) unfavorable immediate risk prostate cancer. An elevated PSA level (6.4 ng/mL) was identified in June 2016. A TRUS biopsy diagnosed an acinar adenocarcinoma of the prostate gland with a Kim pattern 4+3 involving the left mid gland with additional cores demonstrated [place] patterns of 3+3 = 6 (3 specimens) and 3+4 = 7 (2 cores). The patient elected observation for initial management. In December 2020, his PSA was 16.3 ng/mL and he requested treatment. He was prescribed total androgen suppression - Casodex & Zoladex (administered January 20, 2021). He presents for radiotherapy planning. Daily radiotherapy was administered between the dates of March 14, 2021 through April 11, 2021. A prescribed dose of 60 Gy was delivered in 30 fractions encompassing 29 elapsed days. On review of systems, the patient denied lower urinary tract symptoms and he did not report any gastrointestinal complaints. On physical examination, the patient weighed 235 pounds. The temperature is 97.4???F. His blood pressure was 146/97 mmHg. The pulse was 73 bpm and his respiratory rate was 18 breaths per minute. Genitourinary exam was deferred. In summary, Mr. Jensen returned for a routine post-radiotherapy follow-up. A PSA and testosterone obtained on April 25 were 0.15 ng/mL and 2.5 ng/dL. He was also administered the second cycle of a two cycles of Zoladex. He will continue follow-up with his urologist. Signed by: Dr. Henry Devries 05/06/2021 10:16:21 AM
== END 2021-05-28 23:59 | disposition home or self-care (01) ==
LOC: ONCMED 06:18
PROVIDERS: PCP Family Medicine; Visit Provider Radiology Radiation Oncology
DX: Z08 Encounter for follow-up examination after completed treatment for malignant neoplasm (principal); Z85.46 Personal history of malignant neoplasm of prostate; R97.20 Elevated prostate specific antigen [PSA]; Z79.899 Other long term (current) drug therapy; Z92.3 Personal history of irradiation
CPT/HCPCS: 99024

== ENCOUNTER 2021-07-18 08:47 | Outpatient (CLI) | payer MEDICARE, OTHER, SELFPAY ==
[2021-07-18 10:20] LABS: Prostate Specific Antigen 0.047 ng/mL (0-4); Testosterone Total 13.9 ng/dL (193-740)
--- NOTE | 2021-07-18 19:11 | ONC FU_ITS ---
Dr. Evans Patient Follow-Up Note Patient: Benji Jensen Unit #: [id number]: 1940 Dicatated By: Douglas Evans M.D.Date of Visit:Jul 18, 2021 Onc Med Follow-up/Prog Note Chief Complaint: Prostate cancer. History of Present Illness: This is an 80-year-old man with [place] score 7 (4+3) adenocarcinoma of the prostate, diagnosed by MRI directed biopsy of the prostate in August 2016. By clinical evaluation his disease is stage IIC (T2c, N0, M0). He had been followed by Dr. Yamil Day for an elevated PSA level. His initial prostate biopsy which was done around the year 1999 was benign. PSA at that point was 6.5 ng/mL, but it subsequently declined to 1.2 ng/mL. The PSA gradually increased thereafter. By September 2015 it was back up to 4.8. As of June 2016 it was up to 5.3 ng/mL. MRI at that point showed suspicious abnormality in the left peripheral zone. On September 08, 2016 he underwent MRI directed biopsy of the prostate. His prebiopsy PSA was 6.4. Pathology showed adenocarcinoma of the usual acinar type involving multiple cores. The core from the left mid prostate, she apparently corresponded to the MRI abnormality, showed a [place] score of 7 (4+3). Cores from the right base showed Kim score 7 (3+4). Cores from the right apex, left apex, and left base all showed [place] score 6 (3+3). His PTEN-erg genetic tests showed very low risk disease. With those findings, he was followed on observation/expectant management. During subsequent follow-up there was just gradual increase in the PSA level. As of July 2018 it was 8.5 ng/mL and as of July 2019 it was 10.5 ng/mL. On the most recent study, from August 10, 2020 it had increased more significantly, to 13.4 ng/mL, with his PSA doubling time calculating to 4 years. His staging [facility] PET/CT on August 10, 2020 showed prostatomegaly with abnormal hypermetabolism diffusely involving the prostate and with focal hypermetabolism within the left peripheral zone with maximum SUV 13.4. An additional focus of increased uptake within the right peripheral zone had a maximum SUV of 8.6. A probable BPH nodule was noted to indent the base of the urinary bladder. There was no evidence of tumor involvement in the seminal vesicles and there was no gross evidence of extraprostatic tumor extension. Mildly prominent bilateral inguinal lymph nodes had mildly increased radiotracer uptake favoring reactive disease with the largest node measuring 1.0 x 1.1 cm with maximum SUV 2.9. There were no suspicious lymph nodes noted within the abdomen or pelvis and there were no concerning osseous lesions. I had seen him initially on 10/08/2020. At that time he was undecided between treating or observing the prostate cancer, but he did agree to meet with the radiation oncologist, and he ultimately did opt to proceed with treatment. With intermediate risk disease he was recommended to have 6 months of concurrent androgen deprivation therapy. His medical history is also significant for longstanding peripheral neuropathy involving the lower extremities. His other medical illnesses include hypertension, hypertriglyceridemia, type 2 diabetes, and atrial fibrillation. He previously underwent an ablation procedure for the atrial fibrillation. He is a non-smoker. INTERIM HISTORY: He began radiation on 03/14/2021. He then began androgen deprivation therapy with Zoladex 10.8 mg together with 14 days of Casodex on 01/20/2021. He completed radiation on 04/11/2021 to a total dose of 6000 cGy, administered in 30 fractions. His pretreatment PSA level was 16.3 ng/mL. As of 03/10/2021 it had decreased to 2.030 ng/mL. He received a second Zoladex injection on 04/25/2021, and at that point there was further decrease in the PSA to 0.154 ng/mL. He is seen for a follow-up visit. He has been feeling good generally. He still has somewhat limited activity due to his pre-existing neuropathy, but his energy is getting better now and he is pretty much back to his normal pretreatment activity level. ECOG score is 1. He has good appetite. He has not had fever. His hot flashes are getting better. He has a dry cough. He does not complain of shortness of breath or chest pain. He has been aware of atrial fibrillation intermittently, and he has continued anticoagulation with apixaban. His bowel and bladder function have improved somewhat. He has some soreness in the joints, which is not new. He very seldom has headache. He does not complain of dizziness. He says his neuropathy has continued to slowly progress. Medications: Eliquis 1 Tablet (of 5 mg) Oral b.i.d., Jardiance Tablet Oral daily, Lisinopril 1 Tablet (of 10 mg) Oral daily, LORazepam 1 Tablet (of 1 mg) Oral at bedtime Allergies: No Known Allergies. Vital Signs: Performed on Jul 18, 2021 11:21 Height - 76.00 in Weight - 241.6 lbs (HIGH) BSA - 2.40 sq.m BMI - 29.41 Temperature - 97.8 F (LOW) Pulse - 80 /min Respiration - 18 /min BP - 157/75 mm(hg) (HIGH) O2 Sat - 98 % Pain - 3 Fatigue - 5 Physical Examination: Constitutional - He looks pretty good generally, Eyes - Sclerae nonicteric. Conjunctivae clear, ENMT - No lesions noted in the oral cavity, Hematologic/Lymphatic - No cervical, clavicular, or axillary adenopathy, Respiratory - Lungs are clear with good air movement bilaterally, Cardiovascular - Heart rhythm is irregular. There is no murmur, gallop, or rub noted, Abdomen - Soft. Liver and spleen are not enlarged. There is no abdominal mass or ascites noted and there is no inguinal adenopathy, Extremities - Mild lower extremity edema, Neurologic - His lower extremity neuropathy appears unchanged. Lab/Imaging: Test performed on Jul 18, 2021 09:22 Testosterone, Total 13.9 ng/dL PSA 0.047 ng/mL Problem List: 1. Kim score 7 (4+3) adenocarcinoma of the prostate, diagnosed by MRI directed biopsy of the prostate in August 2016, by clinical evaluation now stage IIC (T2c, N0, M0). 2. Hypertension. 3. Hypertriglyceridemia. 4. Type 2 diabetes. 5. Atrial fibrillation. 6. He has longstanding peripheral neuropathy. Problems Addressed with this Encounter and Plan: Patient with [place] score 7 (4+3) adenocarcinoma of the prostate, diagnosed by MRI directed biopsy of the prostate in August 2016. His PTEN-erg genetic studies were very low risk, and he was initially followed on observation/expectant management. During follow-up there has been gradual increase in the PSA level, up to 13.3 ng/mL, representing a doubling time of 4 years. His staging [facility] PET/CT shows abnormal hypermetabolism diffusely involving the prostate with the greatest uptake within the left peripheral zone, maximum SUV 13.4, and with an additional focus of increased uptake was noted within the right peripheral zone, maximum SUV 8.6. There were no other areas of significant uptake on that study. As such, by clinical evaluation his disease appeared to be stage IIC (T2c, N0, M0). He was initially undecided about treatment but he ultimatelyopted to proceed with radiation. With intermediate risk disease, he was recommended to have concurrent androgen deprivation therapy for 6 months. He began radiation on 03/14/2021. He then began androgen deprivation therapy with Zoladex 10.8 mg together with 14 days of Casodex on 01/20/2021. He completed radiation on 04/11/2021 to a total dose of 6000 cGy, administered in 30 fractions. His pretreatment PSA level was 16.3 ng/mL, and as of 03/10/2021 it had decreased to 2.030 ng/mL. He received his second injection of Zoladex on 04/25/2021 and at that point there was further decrease in the PSA to 0.154 ng/mL. He has now completed radiation and 6 months of ADT. He appears to have a good response by PSA level, which is now down to 0.047 ng/mL. He will be scheduling urology follow-up with Dr. Day. I will see him here again in 3 months. Signed By: Douglas Evans M.D. <<Signature on File>>
== END 2021-07-18 08:48 | disposition home or self-care (01) ==
PROVIDERS: PCP Family Medicine; Visit Provider Internal Medicine Medical Oncology
DX: C61 Malignant neoplasm of prostate (principal); I10 Essential (primary) hypertension; E78.1 Pure hyperglyceridemia; E11.42 Type 2 diabetes mellitus with diabetic polyneuropathy; I48.91 Unspecified atrial fibrillation; Z79.899 Other long term (current) drug therapy; Z79.818 Long term (current) use of other agents affecting estrogen receptors and estrogen levels; Z92.21 Personal history of antineoplastic chemotherapy; Z92.3 Personal history of irradiation
CPT/HCPCS: 36415; 84153; 84403; 99214

== ENCOUNTER → 2021-09-12 09:01 | Outpatient (BNVA) | payer MEDICARE, OTHER, SELFPAY | PROVIDERS: PCP Family Medicine; Visit Provider Internal Medicine Cardiovascular Disease | DX: M79.89 Other specified soft tissue disorders (principal); I50.9 Heart failure, unspecified; I48.20 Chronic atrial fibrillation, unspecified; I73.9 Peripheral vascular disease, unspecified | CPT/HCPCS: 80048; 83735; 83880 ==

== ENCOUNTER 2021-11-15 15:52 | Outpatient (CLI) | payer MEDICARE, OTHER, SELFPAY ==
[2021-11-15 16:37] LABS: Basophils % 0.9 %; Eosinophils # 0.1 10^3/uL (0.0-0.8); Eosinophils % 1.5 %; Hematocrit 44.3 % (42.0-52.0); Hemoglobin 14.9 g/dL (11.7-16.6); Lymphocytes # 1.3 10^3/uL (0.8-4.8); Lymphocytes % 29.6 %; Mean Corpuscular HGB Conc 33.6 g/dL (30.0-36.0); Mean Corpuscular Hemoglobin 30.2 pg (28.0-34.0); Mean Corpuscular Volume 89.9 fl (80-94); Mean Platelet Volume 10.4 fL (7.4-10.4); Monocytes # 0.4 10^3/uL (0.2-0.9); Monocytes % 8.4 %; Neutrophils # 2.67 10^3/uL (1.8-7.7); Neutrophils % 59.2 %; Nucleated Red Blood Cells % 0 %; Platelet Count 180 10^3/cmm (130-400); Red Blood Count 4.93 10^6/uL (4.1-5.3); White Blood Count 4.5 10^3/uL (4.0-10.0)
[2021-11-15 17:32] LABS: Alanine Aminotransferase 30 U/L (0-41); Albumin Level 4.2 g/dL (3.5-5.2); Alkaline Phosphatase 65 IU/L (40-130); Aspartate Amino Transferase 26 U/L (0-40); Blood Urea Nitrogen 18 mg/dL (8-23); Carbon Dioxide 24 mmol/L (22-29); Chloride 95 mmol/L (98-107); Globulin 2.8 g/dL (1.3-4.6); Glucose 154 mg/dL (65-115); Osmolality Calculated 285 mOsm/kg (285-295); Sodium 135 mmol/L (136-145); Testosterone Total 5.1 ng/dL (193-740); Total Bilirubin 0.4 mg/dL (0.15-1.2)
[2021-11-15 17:33] LABS: Anion Gap 19.9 (5-19); Potassium 3.9 mmol/L (3.5-5.1); Prostate Specific Antigen 0.018 ng/mL (0-4)
== END 2021-11-15 15:53 | disposition home or self-care (01) ==
LOC: ONCMED 16:01
PROVIDERS: PCP Family Medicine; Visit Provider Internal Medicine Medical Oncology
DX: C61 Malignant neoplasm of prostate (principal)
CPT/HCPCS: 36415; 80053; 84153; 84403; 85025

== ENCOUNTER 2021-11-17 06:37 | Outpatient (CLI) | payer MEDICARE, OTHER, SELFPAY ==
--- NOTE | 2021-11-21 10:32 | ONC FU_ITS ---
Dr. Evans Patient Follow-Up Note Patient: Benji Jensen Unit #: [id number]: 1940 Dicatated By: Douglas Evans M.D.Date of Visit:Nov 17, 2021 Onc Med Follow-up/Prog Note Chief Complaint: Prostate cancer. History of Present Illness: This is an 81-year-old man with [place] score 7 (4+3) adenocarcinoma of the prostate, diagnosed by MRI directed biopsy of the prostate in August 2016. By clinical evaluation his disease was stage IIC (T2c, N0, M0). He had been followed by Dr. Yamil Day for an elevated PSA level. His initial prostate biopsy which was done around the year 1999 was benign. PSA at that point was 6.5 ng/mL, but it subsequently declined to 1.2 ng/mL. The PSA gradually increased thereafter. By September 2015 it was back up to 4.8. As of June 2016 it was up to 5.3 ng/mL. MRI at that point showed suspicious abnormality in the left peripheral zone. On September 08, 2016 he underwent MRI directed biopsy of the prostate. His prebiopsy PSA was 6.4. Pathology showed adenocarcinoma of the usual acinar type involving multiple cores. The core from the left mid prostate, she apparently corresponded to the MRI abnormality, showed a Kim score of 7 (4+3). Cores from the right base showed [place] score 7 (3+4). Cores from the right apex, left apex, and left base all showed Kim score 6 (3+3). His PTEN-erg genetic tests showed very low risk disease. With those findings, he was followed on observation/expectant management. During subsequent follow-up there was just gradual increase in the PSA level. As of July 2018 it was 8.5 ng/mL and as of July 2019 it was 10.5 ng/mL. On the most recent study, from August 10, 2020 it had increased more significantly, to 13.4 ng/mL, with his PSA doubling time calculating to 4 years. His staging [facility] PET/CT on August 10, 2020 showed prostatomegaly with abnormal hypermetabolism diffusely involving the prostate and with focal hypermetabolism within the left peripheral zone with maximum SUV 13.4. An additional focus of increased uptake within the right peripheral zone had a maximum SUV of 8.6. A probable BPH nodule was noted to indent the base of the urinary bladder. There was no evidence of tumor involvement in the seminal vesicles and there was no gross evidence of extraprostatic tumor extension. Mildly prominent bilateral inguinal lymph nodes had mildly increased radiotracer uptake favoring reactive disease with the largest node measuring 1.0 x 1.1 cm with maximum SUV 2.9. There were no suspicious lymph nodes noted within the abdomen or pelvis and there were no concerning osseous lesions. I had seen him initially on 10/08/2020. At that time he was undecided between treating or observing the prostate cancer, but he did agree to meet with the radiation oncologist, and he ultimately did opt to proceed with treatment. With intermediate risk disease he was recommended to have 6 months of concurrent androgen deprivation therapy. He began radiation on 03/14/2021, and he began androgen deprivation therapy with Zoladex 10.8 mg together with 14 days of Casodex on 01/20/2021. He completed radiation on 04/11/2021 to a total dose of 6000 cGy, administered in 30 fractions. His pretreatment PSA level was 16.3 ng/mL. As of 03/10/2021 it had decreased to 2.030 ng/mL. He received a second Zoladex injection on 04/25/2021, and at that point the PSA was down to 0.154 ng/mL. As of 07/18/2021 there was further decline in the PSA to 0.047 ng/mL. His medical history is also significant for longstanding peripheral neuropathy involving the lower extremities. His other medical illnesses include hypertension, hypertriglyceridemia, type 2 diabetes, and atrial fibrillation. He previously underwent an ablation procedure for the atrial fibrillation. He is a non-smoker. INTERIM HISTORY: He is seen for a follow-up visit. Since completing treatment for the prostate cancer his energy has not been as good. He is still doing light work. ECOG score is 1. He has good appetite. He has not had fever. He has just occasional hot flashes. He complains that his hands and his legs and feet have been cold a lot, though sometimes they get hot. He has had to increase his lisinopril and his hydrochlorothiazide, as his blood pressure has been running high. He has not had sore mouth or throat. He reports having a dry cough. He does not complain of shortness of breath or chest pain. He currently has no GI complaints. He says his bowels are getting back to normal. He still has some difficulty getting his bladder to empty completely. He has having some stiffness in his joints, as he had stopped taking Jardiance. He has ongoing problems with the neuropathy. He is able to function better with his orthotics, but he says the pads are very old and are now wearing out. Medications: Eliquis 1 Tablet (of 5 mg) Oral b.i.d., Lisinopril 1 Tablet (of 40 mg) Oral daily, LORazepam 1 Tablet (of 1 mg) Oral at bedtime Allergies: No Known Allergies. Vital Signs: Performed on Nov 17, 2021 14:13 Height - 76.00 in Weight - 246.0 lbs (HIGH) BSA - 2.42 sq.m BMI - 29.94 Temperature - 96.8 F (LOW) Pulse - 83 /min Respiration - 16 /min BP - 159/98 mm(hg) (HIGH) O2 Sat - 97 % Pain - 0 Fatigue - 5 Physical Examination: Constitutional - He looks pretty good generally, Eyes - Sclerae nonicteric. Conjunctivae clear, ENMT - No lesions noted in the oral cavity, Hematologic/Lymphatic - No cervical, clavicular, or axillary adenopathy, Respiratory - Lungs are clear with good air movement bilaterally, Cardiovascular - Heart rhythm is irregular. There is no murmur, gallop, or rub noted, Abdomen - Soft. Liver and spleen are not enlarged. There is no abdominal mass or ascites noted and there is no inguinal adenopathy, Extremities - There are venous stasis changes bilaterally. There is 1-2+ lower extremity edema, Neurologic - His lower extremity neuropathy appears unchanged. Lab/Imaging: CBC shows hemoglobin 14.9 g, white blood cell count 4500, and platelet count 180,000. Comprehensive metabolic profile shows stable renal function with BUN 18 and creatinine 0.6 mg/dL. Bilirubin and liver enzymes are normal. The PSA level is down to 0.018 ng/mL. The total testosterone level remains low at 5.1 ng/dL. Problem List: 1. Kim score 7 (4+3) adenocarcinoma of the prostate, diagnosed by MRI directed biopsy of the prostate in August 2016, by clinical evaluation now stage IIC (T2c, N0, M0). 2. Hypertension. 3. Hypertriglyceridemia. 4. Type 2 diabetes. 5. Atrial fibrillation. 6. He has longstanding peripheral neuropathy. Problems Addressed with this Encounter and Plan: 1. Patient with Kim score 7 (4+3) adenocarcinoma of the prostate, diagnosed by MRI directed biopsy of the prostate in August 2016. His PTEN-erg genetic studies were very low risk, and he was initially followed on observation/expectant management. During follow-up there has been gradual increase in the PSA level, up to 13.3 ng/mL, representing a doubling time of 4 years. His staging Axumin PET/CT shows abnormal hypermetabolism diffusely involving the prostate with the greatest uptake within the left peripheral zone, maximum SUV 13.4, and with an additional focus of increased uptake was noted within the right peripheral zone, maximum SUV 8.6. There were no other areas of significant uptake on that study. As such, by clinical evaluation his disease appeared to be stage IIC (T2c, N0, M0). He was initially undecided about treatment but he ultimately opted to proceed with radiation. With intermediate risk disease, he was recommended to have concurrent androgen deprivation therapy for 6 months. His pretreatment PSA level was 16.3 ng/mL. He completed radiation on 04/11/2021 to a total dose of 6000 cGy, administered in 30 fractions, and he completed 6 months of ADT. As of 07/18/2021 his PSA level was down to 0.047 ng/mL, and it has now further decreased to 0.018 ng/mL. It is now over 6 months since his second and final injection of Zoladex, but his testosterone level remains suppressed at 5.1 ng/dL. I am uncertain why it is not recovering, and I am uncertain to what extent the low testosterone may be contributing to his fatigue. However, there will not be any specific treatment for it. He remains on expectant management for the prostate cancer. I will recheck his PSA level and testosterone in 3 months. I will see him for a follow-up visit in 6 months. 2. He has peripheral neuropathy involving the lower extremities. He has associated weakness, and he has functional improvement with orthotics. I will request new pads for the orthotics, as they are very old and wearing out. Signed By: Douglas Evans M.D. <<Signature on File>>
== END 2021-11-17 06:38 | disposition home or self-care (01) ==
LOC: ONCMED 06:37
PROVIDERS: PCP Family Medicine; Visit Provider Internal Medicine Medical Oncology
DX: Z08 Encounter for follow-up examination after completed treatment for malignant neoplasm (principal); Z85.46 Personal history of malignant neoplasm of prostate; I10 Essential (primary) hypertension; E78.1 Pure hyperglyceridemia; E11.9 Type 2 diabetes mellitus without complications; I48.91 Unspecified atrial fibrillation; G62.9 Polyneuropathy, unspecified; Z79.01 Long term (current) use of anticoagulants; R53.1 Weakness
CPT/HCPCS: 99214

== ENCOUNTER 2021-11-22 12:46 | Outpatient (CLI) | payer MEDICARE, OTHER, SELFPAY ==
--- NOTE | 2021-11-22 12:45 | USCV_ITS ---
Benji Jensen Age: 81 Gender: M : 1940 Exam Date: 11/22/2021 13:10 Ordering Phys: Cyndy Kwan MD ([email or web address]) Technologist: JUAN Exam Location: [facility] [place] Indication: A FIB BP: 140 / 80 HR: 77 Rhythm: Atrial fibrillation Technical Quality: Technically difficult study MEASUREMENTS (Male / Female) Normal Values 2D ECHO LV Diastolic Diameter PLAX 4.3 cm 4.2 - 5.9 / 3.9 - 5.3 cm LV Systolic Diameter PLAX 3.0 cm IVS Diastolic Thickness 1.7 cm 0.6 - 1.0 / 0.6 - 0.9 cm IVS Systolic Thickness 2.0 cm LVPW Diastolic Thickness 1.5 cm 0.6 - 1.0 / 0.6 - 0.9 cm LVPW Systolic Thickness 1.9 cm LVOT Diameter 2.0 cm LV Ejection Fraction 2D Teich 57.8 % LV Ejection Fraction MOD 2C 66.8 % LV Ejection Fraction 2C AL 66.8 % LA Diameter 4.2 cm LA Width 3.8 cm LA Height 5.5 cm RA Width 4.2 cm RA Height 6.0 cm Aorta at Sinotubular Diameter 3.4 cm M-MODE Aortic Annulus Diameter 4.9 cm LA Ao Ratio MM 0.9 MV E Point Septal Separation 0.1 cm DOPPLER AV Peak Velocity 169.3 cm/s LVOT Peak Velocity 119.0 cm/s AV Area Cont Eq vti 2.3 cm squared AV Area Cont Eq pk 2.2 cm squared MV Peak Velocity 99.0 cm/s MV Area PHT 3.5 cm squared MV E' Velocity 60.0 cm/s Mitral E to MV E' Ratio 8.9 Mitral E to LV E' Lateral Ratio 7.5 Mitral E to LV E' Septal Ratio 10.9 TR Peak Velocity 314.2 cm/s TR Peak Gradient 39.5 mmHg TR Mean Velocity 283.5 cm/s TR Mean Gradient 32.0 mmHg TR Velocity Time Integral 92.1 cm TV Peak E Velocity 57.0 cm/s Right Atrial Pressure 3.0 mmHg Pulmonary Artery Systolic Pressu 42.5 mmHg PV Peak Velocity 109.0 cm/s RV Acceleration Time 0.1 s RV Ejection Time 0.3 s RV AcT/ET 0.3 FINDINGS Left Ventricle Normal left ventricular size, systolic function and upper normal wall thickness, with no regional wall motion abnormalities. Left ventricular ejection fraction is estimated at 70 %. Rhythm precludes evaluation of diastolic function. Right Ventricle Normal right ventricular size and systolic function. Right ventricular systolic pressure 42.5 mmHg. Right Atrium Mildly increased right atrial size. Left Atrium Moderately increased left atrial size. Mitral Valve Mild mitral annular calcification. No mitral valve stenosis. Mild mitral valve regurgitation. Aortic Valve Mildly thickened and calcified trileaflet aortic valve. No aortic valve stenosis. No aortic valve regurgitation. Tricuspid Valve Structurally normal tricuspid valve. Trace tricuspid valve regurgitation. Pulmonic Valve Pulmonic valve not well visualized. No pulmonary valve stenosis. Pericardium No pericardial effusion. Echo free space anterior to the right ventricle likely represents a fat pad. Aorta Normal size aortic root and proximal ascending aorta. CONCLUSIONS 1. This is a technically difficult study. Ultrasound enhancing agent Optison was used per protocol. 2. Normal left ventricular size, systolic function and upper normal wall thickness, with no regional wall motion abnormalities. Left ventricular ejection fraction is estimated at 70 %. 3. Moderately increased left atrial size. 4. Pulmonary artery pressure estimated at 43 mm Hg. 5. No prior similar studies to compare. Cyndy Kwan MD (Electronically Signed) Final Date: 25 November 2021 22:25 S
[2021-11-22] MEDS: perflutren protein-a microsphr 0.22 mg/mL SDV 3 mL IV (13:46)
== END 2021-11-22 12:47 | disposition home or self-care (01) ==
LOC: RAD 12:46
PROVIDERS: PCP Family Medicine; Visit Provider Internal Medicine Cardiovascular Disease
DX: I48.91 Unspecified atrial fibrillation (principal); I51.7 Cardiomegaly
CPT/HCPCS: C8929

== ENCOUNTER 2022-02-16 09:49 | Outpatient (CLI) | payer MEDICARE, OTHER, SELFPAY ==
[2022-02-16 11:54] LABS: Prostate Specific Antigen 0.045 ng/mL (0-4)
[2022-02-16 13:24] LABS: Estmated Average Glucose 209; Hemoglobin A1C 8.9 % (4.0-6.0)
[2022-02-16 13:40] LABS: Chol HDL Ratio 7.52 mg/dL (1.0-5.00); Cholesterol 233 mg/dL (0-200); HDL Cholesterol 31 mg/dL (60-100); Triglycerides 540 mg/dL (0-150)
[2022-02-16 13:54] LABS: LDL Cholesterol Direct 99 mg/dL (0-100)
== END 2022-02-16 09:50 | disposition home or self-care (01) ==
PROVIDERS: Internal Medicine; PCP Family Medicine; Visit Provider Internal Medicine Medical Oncology
DX: C61 Malignant neoplasm of prostate (principal); E29.1 Testicular hypofunction
CPT/HCPCS: 36415; 80061; 83036; 83721; 84153; 84403

== ENCOUNTER → 2022-02-28 09:51 | Outpatient (BNVA) | payer MEDICARE, OTHER, SELFPAY | PROVIDERS: PCP Family Medicine; Visit Provider Podiatrist Foot & Ankle Surgery | DX: I73.9 Peripheral vascular disease, unspecified (principal); G62.9 Polyneuropathy, unspecified; L60.3 Nail dystrophy | CPT/HCPCS: 11721 ==

== ENCOUNTER → 2022-03-30 13:19 | Outpatient (BNVA) | payer MEDICARE, OTHER, SELFPAY | PROVIDERS: PCP Family Medicine; Visit Provider Internal Medicine Cardiovascular Disease | DX: I48.20 Chronic atrial fibrillation, unspecified (principal); I10 Essential (primary) hypertension; E11.42 Type 2 diabetes mellitus with diabetic polyneuropathy; E78.00 Pure hypercholesterolemia, unspecified; I73.9 Peripheral vascular disease, unspecified; Z79.01 Long term (current) use of anticoagulants | CPT/HCPCS: 99213; 99214 ==

== ENCOUNTER 2022-06-21 13:52 | Oncology outpatient (recurring) (ONCR) | payer MEDICARE, OTHER, SELFPAY ==
[2022-06-19 14:02] LABS: Basophils % 0.5 %; Eosinophils # 0.1 10^3/uL (0.0-0.8); Eosinophils % 1.9 %; Hematocrit 44.3 % (42.0-52.0); Hemoglobin 14.9 g/dL (11.7-16.6); Lymphocytes # 1.6 10^3/uL (0.8-4.8); Lymphocytes % 25.2 %; Mean Corpuscular HGB Conc 33.6 g/dL (30.0-36.0); Mean Corpuscular Hemoglobin 30.6 pg (28.0-34.0); Mean Platelet Volume 10.4 fL (7.4-10.4); Monocytes # 0.5 10^3/uL (0.2-0.9); Monocytes % 7.3 %; Neutrophils # 4.07 10^3/uL (1.8-7.7); Neutrophils % 64.9 %; Nucleated Red Blood Cells % 0 %; Platelet Count 173 10^3/cmm (130-400); Red Blood Count 4.87 10^6/uL (4.1-5.3); Red Cell Distribution Width 12.5 % (12.1-15.1); White Blood Count 6.3 10^3/uL (4.0-10.0)
[2022-06-19 14:40] LABS: Alanine Aminotransferase 18 U/L (0-41); Albumin Level 4.3 g/dL (3.5-5.2); Alkaline Phosphatase 58 U/L (40-130); Anion Gap 15.2 (5-19); Aspartate Amino Transferase 20 U/L (0-40); Blood Urea Nitrogen 16 mg/dL (8-23); Calcium 9.4 mg/dL (8.5-10.5); Carbon Dioxide 28 mmol/L (22-29); Chloride 96 mmol/L (98-107); Globulin 2.7 g/dL (1.3-4.6); Glucose 135 mg/dL (65-115); Osmolality Calculated 283 mOsm/kg (285-295); Potassium 4.2 mmol/L (3.5-5.1); Prostate Specific Antigen 0.113 ng/mL (0-4); Sodium 135 mmol/L (136-145); Total Bilirubin 0.4 mg/dL (0.15-1.2)
[2022-06-19 15:45] LABS: Testosterone Total 253.4 ng/dL (193-740)
== END 2022-06-28 23:59 | disposition home or self-care (01) ==
PROVIDERS: PCP Family Medicine; Visit Provider Internal Medicine Medical Oncology
DX: C61 Malignant neoplasm of prostate (principal); Z92.3 Personal history of irradiation
CPT/HCPCS: 36415; 80053; 84153; 84403; 85025; G0463

== ENCOUNTER → 2022-07-11 10:43 | Outpatient (BNVA) | payer MEDICARE, OTHER, SELFPAY | PROVIDERS: PCP Family Medicine; Visit Provider Podiatrist Foot & Ankle Surgery | DX: E11.8 Type 2 diabetes mellitus with unspecified complications (principal); I73.9 Peripheral vascular disease, unspecified; G62.9 Polyneuropathy, unspecified; L60.3 Nail dystrophy | CPT/HCPCS: 11721 ==

== ENCOUNTER → 2022-09-12 09:15 | Outpatient (BNVA) | payer MEDICARE, OTHER, SELFPAY | PROVIDERS: PCP Family Medicine; Visit Provider Podiatrist Foot & Ankle Surgery | DX: E11.8 Type 2 diabetes mellitus with unspecified complications (principal); I73.9 Peripheral vascular disease, unspecified; G62.9 Polyneuropathy, unspecified; L60.3 Nail dystrophy | CPT/HCPCS: 11721 ==

== ENCOUNTER 2022-09-28 08:36 | Outpatient (CLI) | payer MEDICARE, OTHER, SELFPAY ==
[2022-09-28 09:55] LABS: Add Urine Microscopic? NO; Charge for UA Resulting for Rev
[2022-09-28 10:39] LABS: Prostate Specific Antigen 0.111 ng/mL (0-4)
[2022-09-28 10:41] LABS: Creatinine Urine, Random 99 mg/dL (39-259); Microalbum Creatinine Ratio Ur 10 mg/dL (0-20); Microalbumin Random Urine 1 ug/dL (0-20)
[2022-09-28 10:43] LABS: Bilirubin Urine Neg (Negative); Blood Urine Neg (Negative); Glucose Urine UA Norm (Normal); Ketones Urine Negative (Negative); Leukocyte Esterase Urine Negative (Negative); Nitrate Urine Negative (Negative); Protein Urine Neg (Negative); Urine Appearance Clear (CLEAR); Urine Color Yellow (Yellow); Urobilinogen Urine Neg (Negative); pH Urine 7 (5-7)
[2022-09-28 11:34] LABS: Basophils % 0.4 %; Eosinophils # 0.1 10^3/uL (0.0-0.8); Eosinophils % 2.9 %; Hematocrit 46.3 % (42.0-52.0); Hemoglobin 15.3 g/dL (11.7-16.6); Lymphocytes # 1.2 10^3/uL (0.8-4.8); Lymphocytes % 27.5 %; Mean Corpuscular Hemoglobin 30.7 pg (28.0-34.0); Monocytes # 0.4 10^3/uL (0.2-0.9); Monocytes % 7.8 %; Neutrophils # 2.77 10^3/uL (1.8-7.7); Neutrophils % 61.4 %; Nucleated Red Blood Cells % 0 %; Platelet Count 174 10^3/cmm (130-400); Red Blood Count 4.98 10^6/uL (4.1-5.3); Red Cell Distribution Width 12.6 % (12.1-15.1); White Blood Count 4.5 10^3/uL (4.0-10.0)
[2022-09-28 11:46] LABS: Alanine Aminotransferase 17 U/L (0-41); Alkaline Phosphatase 57 U/L (40-130); Aspartate Amino Transferase 20 U/L (0-40); Blood Urea Nitrogen 17 mg/dL (8-23); Calcium 9.4 mg/dL (8.5-10.5); Carbon Dioxide 27 mmol/L (22-29); Chloride 97 mmol/L (98-107); Chol HDL Ratio 7.13 mg/dL (1.0-5.00); Cholesterol 221 mg/dL (0-200); Globulin 3.3 g/dL (1.3-4.6); Glucose 173 mg/dL (65-115); HDL Cholesterol 31 mg/dL (60-100); Osmolality Calculated 290 mOsm/kg (285-295); Sodium 137 mmol/L (136-145); Total Bilirubin 0.6 mg/dL (0.15-1.2); Total Protein 7.3 g/dL (6.6-8.7); Triglycerides 521 mg/dL (0-150)
[2022-09-28 12:01] LABS: Estmated Average Glucose 180; Hemoglobin A1C 7.9 % (4.0-6.0)
[2022-09-28 12:11] LABS: LDL Cholesterol Direct 104 mg/dL (0-100)
== END 2022-09-28 08:37 | disposition home or self-care (01) ==
LOC: LAB 08:40
PROVIDERS: Internal Medicine Medical Oncology; PCP Family Medicine; Visit Provider Internal Medicine
DX: E78.5 Hyperlipidemia, unspecified (principal); C61 Malignant neoplasm of prostate; E11.9 Type 2 diabetes mellitus without complications; I10 Essential (primary) hypertension; Z00.01 Encounter for general adult medical examination with abnormal findings
CPT/HCPCS: 36415; 80053; 80061; 81003; 82044; 83036; 83721; 84153; 85025

== ENCOUNTER → 2022-10-05 12:39 | Outpatient (BNVA) | payer MEDICARE, OTHER, SELFPAY | PROVIDERS: PCP Family Medicine; Visit Provider Internal Medicine Cardiovascular Disease | DX: I48.20 Chronic atrial fibrillation, unspecified (principal); Z79.01 Long term (current) use of anticoagulants; C61 Malignant neoplasm of prostate; E78.00 Pure hypercholesterolemia, unspecified; I10 Essential (primary) hypertension; I73.9 Peripheral vascular disease, unspecified; E11.42 Type 2 diabetes mellitus with diabetic polyneuropathy; Z79.84 Long term (current) use of oral hypoglycemic drugs | CPT/HCPCS: 99213 ==

== ENCOUNTER → 2022-11-07 10:46 | Outpatient (BNVA) | payer MEDICARE, OTHER, SELFPAY | PROVIDERS: PCP Family Medicine; Visit Provider Podiatrist Foot & Ankle Surgery | DX: E11.8 Type 2 diabetes mellitus with unspecified complications (principal); I73.9 Peripheral vascular disease, unspecified; G62.9 Polyneuropathy, unspecified; L60.3 Nail dystrophy | CPT/HCPCS: 11721 ==

== ENCOUNTER 2022-12-25 09:08 | Oncology outpatient (recurring) (ONCR) | payer MEDICARE, OTHER, SELFPAY ==
[2022-12-25 10:05] LABS: Basophils % 0.4 %; Eosinophils # 0.1 10^3/uL (0.0-0.8); Hematocrit 44.2 % (42.0-52.0); Hemoglobin 14.8 g/dL (11.7-16.6); Lymphocytes # 1.1 10^3/uL (0.8-4.8); Lymphocytes % 24.1 %; Mean Corpuscular HGB Conc 33.5 g/dL (30.0-36.0); Mean Corpuscular Hemoglobin 30.6 pg (28.0-34.0); Mean Corpuscular Volume 91.5 fl (80-94); Mean Platelet Volume 10.4 fL (7.4-10.4); Monocytes # 0.4 10^3/uL (0.2-0.9); Neutrophils # 3.06 10^3/uL (1.8-7.7); Neutrophils % 64.5 %; Nucleated Red Blood Cells % 0 %; Platelet Count 162 10^3/cmm (130-400); Red Blood Count 4.83 10^6/uL (4.1-5.3); Red Cell Distribution Width 12.8 % (12.1-15.1); White Blood Count 4.7 10^3/uL (4.0-10.0)
[2022-12-25 10:28] LABS: Alanine Aminotransferase 15 U/L (0-41); Albumin Level 3.8 g/dL (3.5-5.2); Alkaline Phosphatase 50 U/L (40-130); Anion Gap 15.1 (5-19); Aspartate Amino Transferase 19 U/L (0-40); Blood Urea Nitrogen 21 mg/dL (8-23); Carbon Dioxide 26 mmol/L (22-29); Chloride 100 mmol/L (98-107); Globulin 3.1 g/dL (1.3-4.6); Glucose 165 mg/dL (65-115); Osmolality Calculated 291 mOsm/kg (285-295); Potassium 4.1 mmol/L (3.5-5.1); Prostate Specific Antigen 0.127 ng/mL (0-4); Sodium 137 mmol/L (136-145); Total Bilirubin 0.4 mg/dL (0.15-1.2); Total Protein 6.9 g/dL (6.6-8.7)
[2022-12-25 12:10] LABS: Chol HDL Ratio 6.37 mg/dL (1.0-5.00); Cholesterol 191 mg/dL (0-200); HDL Cholesterol 30 mg/dL (60-100); LDL Cholesterol Calculated 92 mg/dL (50-129); LDL HDL Ratio 3.07 RATIO (0.00-3.22); Triglycerides 344 mg/dL (0-150)
[2022-12-25 12:20] LABS: Estmated Average Glucose 160; Hemoglobin A1C 7.2 % (4.0-6.0)
== END 2022-12-26 23:59 | disposition home or self-care (01) ==
PROVIDERS: PCP Family Medicine; Visit Provider Internal Medicine Medical Oncology
DX: C61 Malignant neoplasm of prostate (principal); E11.9 Type 2 diabetes mellitus without complications; E78.00 Pure hypercholesterolemia, unspecified; Z92.3 Personal history of irradiation; K92.1 Melena; R39.198 Other difficulties with micturition; Z79.899 Other long term (current) drug therapy; G62.9 Polyneuropathy, unspecified
CPT/HCPCS: 36415; 80053; 80061; 83036; 84153; 85025; 99214

== ENCOUNTER → 2023-02-08 10:13 | Outpatient (BNVA) | payer MEDICARE, OTHER, SELFPAY | PROVIDERS: PCP Family Medicine; Visit Provider Podiatrist Foot & Ankle Surgery | DX: I73.9 Peripheral vascular disease, unspecified (principal); E11.8 Type 2 diabetes mellitus with unspecified complications; G62.9 Polyneuropathy, unspecified; L60.3 Nail dystrophy; E11.42 Type 2 diabetes mellitus with diabetic polyneuropathy | CPT/HCPCS: 11721 ==

== ENCOUNTER → 2023-03-06 15:35 | Outpatient (BNVA) | payer MEDICARE, OTHER, SELFPAY | PROVIDERS: PCP Family Medicine; Visit Provider Dermatology | DX: L20.84 Intrinsic (allergic) eczema (principal); L57.0 Actinic keratosis; L82.1 Other seborrheic keratosis | CPT/HCPCS: 17000; 17003; 99214 ==

== ENCOUNTER → 2023-03-19 08:25 | Outpatient (BNVA) | payer MEDICARE, OTHER, SELFPAY | PROVIDERS: PCP Family Medicine; Visit Provider Family Medicine | DX: E78.5 Hyperlipidemia, unspecified (principal); E11.9 Type 2 diabetes mellitus without complications; C61 Malignant neoplasm of prostate; I10 Essential (primary) hypertension; I48.20 Chronic atrial fibrillation, unspecified | CPT/HCPCS: 80053; 80061; 83036; 83735 ==

== ENCOUNTER 2023-03-27 13:22 | Oncology outpatient (recurring) (ONCR) | payer MEDICARE, OTHER, SELFPAY ==
[2023-03-27 14:12] LABS: Prostate Specific Antigen 0.136 ng/mL (0-4)
== END 2023-03-28 23:59 | disposition home or self-care (01) ==
LOC: ONCMED 13:23
PROVIDERS: PCP Family Medicine; Visit Provider Internal Medicine Medical Oncology
DX: C61 Malignant neoplasm of prostate (principal); E11.9 Type 2 diabetes mellitus without complications
CPT/HCPCS: 36415; 84153

== ENCOUNTER → 2023-04-13 08:45 | Outpatient (BNVA) | payer MEDICARE, OTHER, SELFPAY | PROVIDERS: PCP Family Medicine; Visit Provider Internal Medicine Cardiovascular Disease | DX: I48.20 Chronic atrial fibrillation, unspecified (principal); E78.5 Hyperlipidemia, unspecified; Z79.01 Long term (current) use of anticoagulants; I10 Essential (primary) hypertension; E11.42 Type 2 diabetes mellitus with diabetic polyneuropathy | CPT/HCPCS: 99213 ==

== ENCOUNTER → 2023-05-03 10:14 | Outpatient (BNVA) | payer MEDICARE, OTHER, SELFPAY | PROVIDERS: PCP Family Medicine; Visit Provider Podiatrist Foot & Ankle Surgery | DX: I73.9 Peripheral vascular disease, unspecified (principal); L60.8 Other nail disorders; L60.3 Nail dystrophy; G62.9 Polyneuropathy, unspecified | CPT/HCPCS: 11721 ==

== ENCOUNTER → 2023-06-18 09:16 | Outpatient (BNVA) | payer MEDICARE, OTHER, SELFPAY | PROVIDERS: PCP Family Medicine; Visit Provider Family Medicine | DX: E78.5 Hyperlipidemia, unspecified (principal); E11.9 Type 2 diabetes mellitus without complications; I10 Essential (primary) hypertension | CPT/HCPCS: 80053; 80061; 83036; 84153; 85025 ==

== ENCOUNTER 2023-06-20 12:39 | Oncology outpatient (recurring) (ONCR) | payer MEDICARE, OTHER, SELFPAY | END 2023-06-28 23:59 | disposition home or self-care (01) | LOC: ONCMED 12:40 | PROVIDERS: PCP Family Medicine; Visit Provider Internal Medicine Medical Oncology | DX: Z08 Encounter for follow-up examination after completed treatment for malignant neoplasm (principal); Z85.46 Personal history of malignant neoplasm of prostate; Z92.21 Personal history of antineoplastic chemotherapy; Z92.3 Personal history of irradiation | CPT/HCPCS: 99213 ==

== ENCOUNTER → 2023-08-02 10:31 | Outpatient (BNVA) | payer MEDICARE, OTHER, SELFPAY | PROVIDERS: PCP Family Medicine; Visit Provider Podiatrist Foot & Ankle Surgery | DX: L60.8 Other nail disorders (principal); I73.9 Peripheral vascular disease, unspecified; G62.9 Polyneuropathy, unspecified; L60.3 Nail dystrophy | CPT/HCPCS: 11721 ==

== ENCOUNTER → 2023-09-10 09:23 | Outpatient (BNVA) | payer MEDICARE, OTHER, SELFPAY | PROVIDERS: PCP Family Medicine; Visit Provider Family Medicine | DX: E11.9 Type 2 diabetes mellitus without complications (principal); E78.5 Hyperlipidemia, unspecified; I10 Essential (primary) hypertension; I48.91 Unspecified atrial fibrillation | CPT/HCPCS: 80053; 80061; 83036; 83880; 85025 ==

== ENCOUNTER → 2023-10-05 09:05 | Outpatient (BNVA) | payer MEDICARE, OTHER, SELFPAY | PROVIDERS: PCP Family Medicine; Visit Provider Internal Medicine Cardiovascular Disease | DX: I48.20 Chronic atrial fibrillation, unspecified (principal); E78.5 Hyperlipidemia, unspecified; E11.9 Type 2 diabetes mellitus without complications; Z79.01 Long term (current) use of anticoagulants; I10 Essential (primary) hypertension; Z98.890 Other specified postprocedural states; Z92.3 Personal history of irradiation; C61 Malignant neoplasm of prostate | CPT/HCPCS: 99213 ==

== ENCOUNTER → 2023-11-20 10:33 | Outpatient (BNVA) | payer MEDICARE, OTHER, SELFPAY | PROVIDERS: PCP Family Medicine; Visit Provider Podiatrist Foot & Ankle Surgery | DX: I73.9 Peripheral vascular disease, unspecified (principal); L60.3 Nail dystrophy; E11.69 Type 2 diabetes mellitus with other specified complication | CPT/HCPCS: 11721 ==

== ENCOUNTER → 2023-12-17 08:49 | Outpatient (BNVA) | payer MEDICARE, OTHER, SELFPAY | PROVIDERS: PCP Family Medicine; Visit Provider Family Medicine | DX: C61 Malignant neoplasm of prostate (principal) | CPT/HCPCS: 80053; 84153 ==

== ENCOUNTER 2023-12-20 13:19 | Oncology outpatient (recurring) (ONCR) | payer MEDICARE, OTHER, SELFPAY | END 2023-12-27 23:59 | disposition home or self-care (01) | LOC: ONCMED 13:19 | PROVIDERS: PCP Family Medicine; Visit Provider Internal Medicine Medical Oncology | DX: C61 Malignant neoplasm of prostate (principal); R97.21 Rising PSA following treatment for malignant neoplasm of prostate; Z92.3 Personal history of irradiation; K92.1 Melena | CPT/HCPCS: 99214 ==

== ENCOUNTER → 2024-01-31 09:06 | Outpatient (BNVA) | payer MEDICARE, OTHER, SELFPAY | PROVIDERS: PCP Family Medicine; Visit Provider Family Medicine | DX: E11.9 Type 2 diabetes mellitus without complications (principal); E78.5 Hyperlipidemia, unspecified; C61 Malignant neoplasm of prostate; I10 Essential (primary) hypertension; I48.91 Unspecified atrial fibrillation | CPT/HCPCS: 80053; 80061; 83036; 85025 ==

== ENCOUNTER → 2024-02-05 11:32 | Outpatient (BNVA) | payer MEDICARE, OTHER, SELFPAY | PROVIDERS: PCP Family Medicine; Visit Provider Family Medicine | DX: G62.9 Polyneuropathy, unspecified (principal); M79.89 Other specified soft tissue disorders; E11.9 Type 2 diabetes mellitus without complications | CPT/HCPCS: 82607; 83880; 84443 ==

== ENCOUNTER → 2024-02-19 10:44 | Outpatient (BNVA) | payer MEDICARE, OTHER, SELFPAY | PROVIDERS: PCP Family Medicine; Visit Provider Podiatrist Foot & Ankle Surgery | DX: I73.9 Peripheral vascular disease, unspecified (principal); L60.3 Nail dystrophy; E11.69 Type 2 diabetes mellitus with other specified complication | CPT/HCPCS: 11721 ==

== ENCOUNTER → 2024-03-06 10:24 | Outpatient (BNVA) | payer MEDICARE, OTHER, SELFPAY | PROVIDERS: PCP Family Medicine; Visit Provider Nurse Practitioner Family | DX: L57.0 Actinic keratosis (principal); L20.89 Other atopic dermatitis; L82.1 Other seborrheic keratosis; I78.8 Other diseases of capillaries; R60.0 Localized edema; Z85.828 Personal history of other malignant neoplasm of skin | CPT/HCPCS: 17000; 99214 ==

== ENCOUNTER → 2024-04-03 09:20 | Outpatient (BNVA) | payer MEDICARE, OTHER, SELFPAY | PROVIDERS: PCP Family Medicine; Visit Provider Nurse Practitioner Family | DX: L57.0 Actinic keratosis (principal); L30.0 Nummular dermatitis; L82.1 Other seborrheic keratosis; I78.8 Other diseases of capillaries; R60.0 Localized edema; Z85.828 Personal history of other malignant neoplasm of skin | CPT/HCPCS: 17000; 99214 ==

== ENCOUNTER → 2024-04-04 09:17 | Outpatient (BNVA) | payer MEDICARE, OTHER, SELFPAY | PROVIDERS: PCP Family Medicine; Visit Provider Internal Medicine Cardiovascular Disease | DX: I10 Essential (primary) hypertension (principal); I48.20 Chronic atrial fibrillation, unspecified; Z98.890 Other specified postprocedural states; Z79.01 Long term (current) use of anticoagulants; E78.5 Hyperlipidemia, unspecified; E11.42 Type 2 diabetes mellitus with diabetic polyneuropathy; Z79.84 Long term (current) use of oral hypoglycemic drugs; E11.52 Type 2 diabetes mellitus with diabetic peripheral angiopathy with gangrene | CPT/HCPCS: 99213 ==

== ENCOUNTER → 2024-05-13 08:50 | Outpatient (BNVA) | payer MEDICARE, OTHER, SELFPAY | PROVIDERS: PCP Family Medicine; Visit Provider Family Medicine | DX: I73.9 Peripheral vascular disease, unspecified (principal); I48.20 Chronic atrial fibrillation, unspecified; M79.89 Other specified soft tissue disorders; I10 Essential (primary) hypertension; R73.03 Prediabetes; N18.9 Chronic kidney disease, unspecified; Z85.828 Personal history of other malignant neoplasm of skin | CPT/HCPCS: 80053; 80061; 83036; 85025 ==

== ENCOUNTER → 2024-05-20 11:28 | Outpatient (BNVA) | payer MEDICARE, OTHER, SELFPAY | PROVIDERS: PCP Family Medicine; Visit Provider Podiatrist Foot & Ankle Surgery | DX: I73.9 Peripheral vascular disease, unspecified (principal); E11.69 Type 2 diabetes mellitus with other specified complication; L60.3 Nail dystrophy | CPT/HCPCS: 11721 ==

== ENCOUNTER → 2024-06-04 09:53 | Outpatient (BNVA) | payer MEDICARE, OTHER, SELFPAY | PROVIDERS: PCP Family Medicine; Referring Provider Family Medicine; Visit Provider Psychiatry & Neurology Neurology | DX: E11.42 Type 2 diabetes mellitus with diabetic polyneuropathy (principal); Z79.84 Long term (current) use of oral hypoglycemic drugs; I10 Essential (primary) hypertension; R68.89 Other general symptoms and signs; R53.1 Weakness; R20.2 Paresthesia of skin | CPT/HCPCS: 99203 ==

== ENCOUNTER 2024-06-19 11:45 | Oncology outpatient (recurring) (ONCR) | payer MEDICARE, OTHER, SELFPAY ==
[2024-06-19 12:39] LABS: Basophils % 0.7 %; Eosinophils # 0.1 10^3/uL (0.0-0.8); Eosinophils % 2.4 %; Hematocrit 42.7 % (37-53); Lymphocytes % 19.1 %; Mean Corpuscular HGB Conc 33.5 g/dL (30-55); Mean Corpuscular Hemoglobin 30.5 pg (27-33); Monocytes # 0.5 10^3/uL (0.2-0.9); Monocytes % 8.6 %; Neutrophils # 3.68 10^3/uL (1.8-7.7); Nucleated Red Blood Cells % 0 %; Platelet Count 184 10^3/cmm (157-399); Red Blood Count 4.69 10^6/uL (3.85-5.65); Red Cell Distribution Width 12.8 % (12.1-15.1); White Blood Count 5.34 10^3/uL (3.29-11.43)
[2024-06-19 13:11] LABS: Prostate Specific Antigen 0.176 ng/mL (0-4)
[2024-06-19 13:21] LABS: 25 Hydroxy Vitamin D 26 ng/mL (30-100); Alanine Aminotransferase 16 U/L (0-41); Alkaline Phosphatase 51 U/L (40-130); Anion Gap 13.1 (5-19); Aspartate Amino Transferase 20 U/L (0-40); Blood Urea Nitrogen 21 mg/dL (8-23); Calcium 8.9 mg/dL (8.5-10.5); Carbon Dioxide 27 mmol/L (22-29); Chloride 98 mmol/L (98-107); Globulin 2.7 g/dL (1.3-4.6); Glucose 193 mg/dL (65-115); Homocysteine 9.43 umol/l (0-15); Osmolality Calculated 286 mOsm/kg (285-295); Potassium 4.1 mmol/L (3.5-5.1); Sodium 134 mmol/L (136-145); Total Bilirubin 0.4 mg/dL (0.15-1.2); Total Protein 6.7 g/dL (6.6-8.7); Uric Acid 6.8 mg/dL (3.4-7.0)
[2024-06-19 13:24] LABS: Folate Level 15.4 ng/mL (4.5-32.2)
[2024-06-20 08:26] LABS: Lymes IGG WB <0.90 index
[2024-06-20 10:19] LABS: RPR w(Moniotor) w/REFL Titer NON-REACTIVE (NON-REACTIVE)
[2024-06-22 11:34] LABS: Vitamin B6 Plasma 20.5 ng/mL (2.1-21.7)
[2024-06-23 17:34] LABS: Vitamin B1 (Thiamine),Blood 114 nmol/L (78-185)
[2024-06-23 17:49] LABS: Immunofixation Serum Normal pattern.
[2024-06-25 14:43] LABS: Nicotinamide <20 ng/mL (***); Nicotinic Acid <20 ng/mL (***)
[2024-07-03 21:14] LABS: Treponema pallidum Ab NON-REACTIVE
== END 2024-06-28 23:55 | disposition home or self-care (01) ==
PROVIDERS: Nurse Practitioner Family; Psychiatry & Neurology Neurology; PCP Family Medicine; Visit Provider Internal Medicine Medical Oncology
DX: C61 Malignant neoplasm of prostate (principal); E55.9 Vitamin D deficiency, unspecified; I10 Essential (primary) hypertension; G62.9 Polyneuropathy, unspecified
CPT/HCPCS: 36415; 80053; 82306; 82746; 83090; 84153; 84207; 84425; 84550; 84591; 85025; 86334; 86592; 86617; 86780; 99214

== ENCOUNTER → 2024-08-14 12:55 | Outpatient (BNVA) | payer MEDICARE, OTHER, SELFPAY | PROVIDERS: PCP Family Medicine; Referring Provider Psychiatry & Neurology Neurology; Visit Provider Psychiatry & Neurology Neurology | DX: R29.898 Other symptoms and signs involving the musculoskeletal system (principal); G62.9 Polyneuropathy, unspecified; R20.2 Paresthesia of skin; R53.1 Weakness; R68.89 Other general symptoms and signs; M62.541 Muscle wasting and atrophy, not elsewhere classified, right hand; M62.542 Muscle wasting and atrophy, not elsewhere classified, left hand; G56.03 Carpal tunnel syndrome, bilateral upper limbs; G56.23 Lesion of ulnar nerve, bilateral upper limbs | CPT/HCPCS: 95911 ==

== ENCOUNTER → 2024-08-26 11:21 | Outpatient (BNVA) | payer MEDICARE, OTHER, SELFPAY | PROVIDERS: PCP Family Medicine; Visit Provider Podiatrist Foot & Ankle Surgery | DX: I73.9 Peripheral vascular disease, unspecified (principal); E11.69 Type 2 diabetes mellitus with other specified complication; L60.3 Nail dystrophy | CPT/HCPCS: 11721 ==

== ENCOUNTER → 2024-09-02 14:48 | Outpatient (BNVA) | payer MEDICARE, OTHER, SELFPAY | PROVIDERS: PCP Family Medicine; Visit Provider Psychiatry & Neurology Neurology | DX: G62.9 Polyneuropathy, unspecified (principal); E55.9 Vitamin D deficiency, unspecified; I10 Essential (primary) hypertension; R20.2 Paresthesia of skin; I48.91 Unspecified atrial fibrillation; E11.9 Type 2 diabetes mellitus without complications; I73.9 Peripheral vascular disease, unspecified | CPT/HCPCS: 99212 ==

== ENCOUNTER → 2024-09-30 13:35 | Outpatient (BNVA) | payer MEDICARE, OTHER, SELFPAY | PROVIDERS: PCP Family Medicine; Visit Provider Nurse Practitioner Family | DX: L30.0 Nummular dermatitis (principal); L82.1 Other seborrheic keratosis; I78.8 Other diseases of capillaries; Z85.828 Personal history of other malignant neoplasm of skin; L57.0 Actinic keratosis | CPT/HCPCS: 17000; 99213 ==

== ENCOUNTER → 2024-10-08 15:09 | Outpatient (BNVA) | payer MEDICARE, OTHER, SELFPAY | PROVIDERS: PCP Family Medicine; Visit Provider Internal Medicine Cardiovascular Disease | DX: I10 Essential (primary) hypertension (principal); E78.5 Hyperlipidemia, unspecified; I48.91 Unspecified atrial fibrillation; E11.42 Type 2 diabetes mellitus with diabetic polyneuropathy; Z79.84 Long term (current) use of oral hypoglycemic drugs; Z79.01 Long term (current) use of anticoagulants | CPT/HCPCS: 99214 ==

== ENCOUNTER → 2024-11-24 12:55 | Outpatient (BNVA) | payer MEDICARE, OTHER, SELFPAY | PROVIDERS: PCP Family Medicine; Visit Provider Podiatrist Foot & Ankle Surgery | DX: E11.8 Type 2 diabetes mellitus with unspecified complications (principal); I73.9 Peripheral vascular disease, unspecified; E11.69 Type 2 diabetes mellitus with other specified complication; L60.3 Nail dystrophy | CPT/HCPCS: 11721 ==

== ENCOUNTER → 2024-12-03 08:39 | Outpatient (BNVA) | payer MEDICARE, OTHER, SELFPAY | PROVIDERS: PCP Family Medicine; Visit Provider Family Medicine | DX: C61 Malignant neoplasm of prostate (principal); E11.9 Type 2 diabetes mellitus without complications; I12.9 Hypertensive chronic kidney disease with stage 1 through stage 4 chronic kidney disease, or unspecified chronic kidney disease; N18.9 Chronic kidney disease, unspecified | CPT/HCPCS: 80053; 80061; 83036; 84153; 85025 ==

== ENCOUNTER → 2024-12-30 10:19 | Outpatient (BNVA) | payer MEDICARE, OTHER, SELFPAY | PROVIDERS: PCP Family Medicine; Visit Provider Family Medicine | DX: I10 Essential (primary) hypertension (principal); I48.20 Chronic atrial fibrillation, unspecified | CPT/HCPCS: 80048 ==

== ENCOUNTER 2025-02-11 14:05 | Inpatient (IN) | payer MEDICARE, OTHER, SELFPAY ==
[2025-02-11] VITALS (7 sets, daily range): BP systolic 144–181; BP diastolic 77–100; PULSE 64–89; RESP 16–18; TEMP 36.5–36.7; O2SAT 91–96; BMI 29.8; BMI 31.4
--- NOTE | 2025-02-11 14:14 | ECG_ITS ---
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 Measurements Intervals [place] Rate: 78 P: 0 [place]: 0 QRS: 81 QRSD: 126 T: 79 QT: 379 QTc: 432 Interpretive Statements ATRIAL FIBRILLATION MODERATE INTRAVENTRICULAR CONDUCTION DELAY [110+ ms QRS DURATION] ABNORMAL RHYTHM ECG No previous ECG available for comparison Electronically Signed On 02-11-2025 21:42:23 CDT by Gavi Garcia M.D. [id number]
--- NOTE | 2025-02-11 17:36 | XRR_ITS ---
PROCEDURE INFORMATION: Exam: XR Chest Exam date and time: 02/11/2025 5:45 PM Age: 84 years old Clinical indication: Shortness of breath TECHNIQUE: Imaging protocol: Radiologic exam of the chest. Views: 1 view. COMPARISON: No relevant prior studies available. FINDINGS: Lungs: Unremarkable. No consolidation. Pleural spaces: Unremarkable. No pleural effusion. No pneumothorax. Heart/Mediastinum: Unremarkable. No cardiomegaly. Bones/joints: Unremarkable. XR/XR chest 1V portable [id number] IMPRESSION: No acute findings.
--- NOTE | 2025-02-11 18:39 | W.ED.SOB ---
HPI - SOB/Dyspnea General: Chief Complaint: Shortness of Breath/Dyspnea Stated Complaint: SOB Time Seen by Provider: 02/11/25 18:07 History of Present Illness: HPI Narrative: Patient is a generally well-appearing 84-year-old male with history of atrial fibrillation on apixaban seen for fever, increased leg swelling, worsening orthopnea, and worsening dyspnea on exertion which have been getting worse since 4 days ago. He admits to roughly 15 pound weight increase over the last several weeks which is abnormal for him. He does not currently take a water pill though he states that he has chronic edema of his lower extremities. He states that the edema is significantly worse in the last 5 days now extending up to his legs. He also describes distended abdomen and worsening orthopnea. He does not wear oxygen. He states that he feels profoundly short of breath just walking from the bed to the bathroom with his walker which is abnormal for him. Additionally, he states he had a fever up to 103 as of 4 days ago but that has since remitted. He is taking Tylenol. He denies cough associated with the shortness of breath. He has no upper respiratory symptoms. He admits of squeezing sensation across the upper abdomen but denies right upper quadrant pain, epigastric pain, nausea, vomiting, diarrhea, constipation, and has no history of abdominal surgeries. Related Data Home Medications ?Medication ?Instructions ?Recorded ?Confirmed tntvwern-ie-tgldw 300 mcg-K 60 1 tab PO DAILY 09/05/21 02/09/25 mcg-lycop 600 mcg-lutein 300 mcg tablet (Centrum Silver Men) magnesium 200 mg tablet 400 mg PO DAILY PRN 04/13/23 02/09/25 potassium gluconate 595 mg (99 mg) 595 mg PO DAILY PRN 04/13/23 02/09/25 tablet apixaban 5 mg tablet (Eliquis) 2.5 mg PO BID 04/04/24 02/09/25 clobetasol 0.05 % topical ointment topical 06/04/24 02/09/25 Previous Rx's ?Medication ?Instructions ?Recorded valsartan 320 mg tablet 320 mg PO DAILY #90 tabs 10/28/24 glimepiride 2 mg tablet See Rx Instructions .Route 01/03/25 .COMPLEX #30 tabs lorazepam 1 mg tablet 1 mg PO DAILY PRN sleep #30 tabs 01/16/25 amlodipine 5 mg tablet 5 mg PO DAILY #30 tabs 01/19/25 doxycycline hyclate 100 mg capsule 100 mg PO BID #20 caps 02/09/25 Allergies Allergy/AdvReac Type Severity Reaction Status Date / Time No Known Allergies Allergy Verified 02/11/25 14:18 [facility] ED PFSH: Medical History Dyslipidemia Type 2 diabetes mellitus Prostate cancer Peripheral neuropathy Atrial fibrillation Hypertension History of nonmelanoma skin cancer Surgical History History of prostate biopsy (09/08/16) MRI directed biopsy of the prostate Status post catheter ablation of atrial fibrillation Family History Other CAD (coronary artery disease) Diabetes Hyperlipidemia Hypertension Suicide Denies family history of Clotting disorder Dementia Psychiatric illness Chronic kidney disease (CKD) Anesthesia complication Bleeding disorder Lung disease Cancer Stroke Social History Smoking and tobacco/nicotine status: unknown if used tobacco/nicotine Second hand smoke exposure: No Alcohol intake: never Physical Exam Const: COMMON NORMALS: no acute distress, patient oriented x3 and alert HENMT: COMMON NORMALS: normocephalic and atraumatic HEAD & SCALP: normocephalic and atraumatic Eye: COMMON NORMALS: Equal, round and reactive pupils present, EOMs intact bilaterally and no scleral icterus PUPIL: Yes Equal, round and reactive pupils present Resp: COMMON NORMALS: normal respiratory effort and No retractions OTHER: Mild crackles at both lung bases. No respiratory distress. Cardio: COMMON NORMALS: regular rate (Irregularly irregular rhythm. No murmur.), regular rhythm and No murmurs present (Cardio) RATE: regular rate (Irregularly irregular rhythm. No murmur.) RHYTHM: regular rhythm GI: COMMON NORMALS: Soft to palpation and non-tender PALPATION: Yes Soft to palpation OTHER: More protuberant than usual. Easily reducible umbilical hernia. No tenderness to palpation. Extremity: NARRATIVE EXTREMITY EXAM: 2+ pitting edema of the bilateral legs to the mid thigh level. Neuro: COMMON NORMALS: patient oriented x3 SENSORIUM/ORIENTATION: Yes alert Skin: COMMON NORMALS: no rashes or lesions noted GENERAL SKIN EXAM: no rashes or lesions noted Course Vital Signs: Vital signs: Vital Signs Temperature 97.9 F 02/11/25 14:08 Pulse Rate 64 02/11/25 19:12 Respiratory Rate 18 02/11/25 19:12 Blood Pressure 163/82 02/11/25 19:12 Pulse Oximetry 93 02/11/25 19:12 Oxygen Delivery Me thod Room Air 02/11/25 18:43 MDM - SOB/Dyspnea Medical Decision Making In summary, patient is a generally well-appearing 84-year-old male from home seen for worsening dyspnea on exertion and peripheral edema. He states that he is up roughly 15 pounds from baseline. He does not currently take diuretic medication. He was given IV Lasix 40 mg and has robust urine output. BNP is nearly elevated. He will be admitted to the hospitalist service for further observation and diuresis and consideration for further cardiac testing such as possible echo. He is agreeable to the plan. Lab Data 02/11/25 18:30 02/11/25 18:30 Labs/Radiology: Radiology Impressions Chest X-Ray 02/11/25 17:36 IMPRESSION: No acute findings. Laboratory Results WBC 6.54 10^3/uL (3.29-11.43) 02/11/25 18:30 RBC 4.43 10^6/uL (3.85-5.65) 02/11/25 18:30 Hgb 13.30 g/dL (11.27-16.99) 02/11/25 18:30 Hct 40.3 % (37-53) 02/11/25 18:30 MCV 91.0 fl (82-101) 02/11/25 18:30 MCH 30.0 pg (27-33) 02/11/25 18:30 MCHC 33.0 g/dL (30-55) 02/11/25 18:30 RDW 13.4 % (12.1-15.1) 02/11/25 18:30 Plt Count 192 10^3/cmm (157-399) 02/11/25 18:30 MPV 10.1 fL (7.4-10.4) 02/11/25 18:30 Neut % (Auto) 69.8 % 02/11/25 18:30 Lymph % (Auto) 17.3 % 02/11/25 18:30 [place] % (Auto) 8.7 % 02/11/25 18:30 Eos % (Auto) 3.4 % 02/11/25 18:30 Baso % (Auto) 0.5 % 02/11/25 18:30 Neut # (Auto) 4.57 10^3/uL (1.8-7.7) 02/11/25 18:30 Lymph # (Auto) 1.1 10^3/uL (0.8-4.8) 02/11/25 18:30 [place] # (Auto) 0.6 10^3/uL (0.2-0.9) 02/11/25 18:30 Eos # (Auto) 0.2 10^3/uL (0.0-0.8) 02/11/25 18:30 Baso # (Auto) 0.0 10^3/uL (0.0-0.1) 02/11/25 18:30 Nucleated RBC % (auto) 0 % 02/11/25 18: Nucleated RBCs # 0.0 /100WBC 02/11/25 18:30 Sodium 137 mmol/L (136-145) 02/11/25 18:30 Potassium 4.4 mmol/L (3.5-5.1) 02/11/25 18:30 Chloride 99 mmol/L (98-107) 02/11/25 18:30 Carbon Dioxide 24 mmol/L (22-29) 02/11/25 18:30 Anion Gap 18.4 (5-19) 02/11/25 18:30 BUN 13 mg/dL (8-23) 02/11/25 18:30 Creatinine 0.6 mg/dL (0.7-1.2) L 02/11/25 18:30 GFR Calculation Not Reportable 02/11/25 18: Glucose 158 mg/dL (65-115) H 02/11/25 18:30 Calculated Osmolality 287 mOsm/kg (285-295) 02/11/25 18:30 Lactic Acid 1.4 mmol/L (0.5-2.2) 02/11/25 18:30 Calcium 9.2 mg/dL (8.5-10.5) 02/11/25 18:30 Total Bilirubin 0.6 mg/dL (0.15-1.2) 02/11/25 18:30 AST 29 U/L (0-40) 02/11/25 18:30 ALT 26 U/L (0-41) 02/11/25 18:30 Alkaline Phosphatase 76 U/L (40-130) 02/11/25 18:30 Troponin T Baseline 30 ng/L (0-15) H 02/11/25 18:30 Troponin T 120 Minute 30.27 ng/L (0-15) H 02/11/25 20:22 Delta Troponin T 0.27 ABS# (0-10) 02/11/25 20:22 NT-Pro-B Natriuret Pep 1377 pg/mL (0-450) H 02/11/25 18:30 Total Protein 7.0 g/dL (6.6-8.7) 02/11/25 18: Albumin 4.3 g/dL (3.5-5.2) 02/11/25 18: Globulin 2.7 g/dL (1.3-4.6) 02/11/25 18:30 Adenovirus (PCR) Not detected (NOT DETECT) 02/11/25 18:30 C. pneumoniae DNA (PCR) Not detected (NOT DETECT) 02/11/25 18: Coronavirus 229E (PCR) Not detected (NOT DETECT) 02/11/25 18: Human Metapneumovir PCR Not detected (NOT DETECT) 02/11/25 18:30 Influenza A (H1) PCR Not detected (NOT DETECT) 02/11/25 18: Influ A (H1/09) PCR Not detected (NOT DETECT) 02/11/25 18:30 Influenza A (H3) PCR Not detected (NOT DETECT) 02/11/25 18:30 Influenza Type A (PCR) Not detected (NOT DETECT) 02/11/25 18:30 Influenza Type B (PCR) Not detected (NOT DETECT) 02/11/25 18:30 M. pneumoniae (PCR) Not detected (NOT DETECT) 02/11/25 18:30 Parainfluenza 1 (PCR) Not detected (NOT DETECT) 02/11/25 18:30 Parainfluenza 2 (PCR) Not detected (NOT DETECT) 02/11/25 18:30 Parainfluenza 3 (PCR) Not detected (NOT DETECT) 02/11/25 18:30 Parainfluenza 4 (PCR) Not detected (NOT DETECT) 02/11/25 18:30 RSV Type A (PCR) Not detected (NOT DETECT) 02/11/25 18:30 RSV Type B (PCR) Not detected (NOT DETECT) 02/11/25 18:30 Entero/Rhino (PCR) Not detected (NOT DETECT) 02/11/25 18:30 SARS-CoV-2 (PCR) Not detected (NOT DETECT) 02/11/25 18:30 All radiology interpretation(s) finalized by discharge EKG Data EKG 1: Interpretation: Time?1414?atrial fibrillation, rate of 78, no ST segment elevation or depression, no T wave inversions, intervals within normal limits. QTc = 432 EKG 2: Computer Generated Interpretation: Time?1951?atrial fibrillation, rate of 74, no ST segment elevation or depression, no T wave inversions, intervals within the limits. QTc = 407 Discharge Plan Discharge Patient Disposition: Admitted As Inpatient Admit Provider: Adrien Kennedy Clinical Impression: Congestive heart failure, FOX (dyspnea on exertion) Condition: Stable Coding Level of Care Code ED Automobile Inspector for Rosalba Romero
[2025-02-11 18:45] LABS: Basophils % 0.5 %; Eosinophils # 0.2 10^3/uL (0.0-0.8); Eosinophils % 3.4 %; Hematocrit 40.3 % (37-53); Lymphocytes # 1.1 10^3/uL (0.8-4.8); Lymphocytes % 17.3 %; Mean Platelet Volume 10.1 fL (7.4-10.4); Monocytes # 0.6 10^3/uL (0.2-0.9); Monocytes % 8.7 %; Neutrophils # 4.57 10^3/uL (1.8-7.7); Neutrophils % 69.8 %; Nucleated Red Blood Cells % 0 %; Platelet Count 192 10^3/cmm (157-399); Red Blood Count 4.43 10^6/uL (3.85-5.65); Red Cell Distribution Width 13.4 % (12.1-15.1); White Blood Count 6.54 10^3/uL (3.29-11.43)
[2025-02-11 18:59] LABS: Troponin(5th) Baseline 30 ng/L (0-15)
[2025-02-11 19:01] LABS: Lactic Sepsis W/Reflex 1.4 mmol/L (0.5-2.2)
[2025-02-11 19:14] LABS: Alanine Aminotransferase 26 U/L (0-41); Albumin Level 4.3 g/dL (3.5-5.2); Alkaline Phosphatase 76 U/L (40-130); Anion Gap 18.4 (5-19); Aspartate Amino Transferase 29 U/L (0-40); Blood Urea Nitrogen 13 mg/dL (8-23); Calcium 9.2 mg/dL (8.5-10.5); Carbon Dioxide 24 mmol/L (22-29); Chloride 99 mmol/L (98-107); Creatinine Clr Calc Pharmacy 93.8506; Globulin 2.7 g/dL (1.3-4.6); Glucose 158 mg/dL (65-115); NT Pro B Type Natriuretic Pept 1377 pg/mL (0-450); Osmolality Calculated 287 mOsm/kg (285-295); Potassium 4.4 mmol/L (3.5-5.1); Sodium 137 mmol/L (136-145); Total Bilirubin 0.6 mg/dL (0.15-1.2)
--- NOTE | 2025-02-11 19:37 | ECG_ITS ---
[facility] Date: 2025-02-11 Pat Name: Benji Jensen Department: Room: Gender: Male Business Consult: : 1940 Requested By: Emma Shaw Order Number: [id number] Carrillo MD: Gavi Gacria M.D. Measurements Intervals [place] Rate: 74 P: 0 [place]: 0 QRS: 107 QRSD: 102 T: 91 QT: 380 QTc: 423 Interpretive Statements ATRIAL FIBRILLATION RIGHT AXIS DEVIATION [QRS AXIS > 100] Compared to ECG 02/11/2025 14:14:02 Right-axis deviation now present Intraventricular conduction delay no longer present Electronically Signed On 02-11-2025 21:39:03 CDT by Gavi Garcia M.D. [email or web address]
[2025-02-11] MEDS: FUROsemide 10 mg/mL SDV 4mL 40 MG IVP (19:44)
[2025-02-11 20:49] LABS: Troponin 5 2HR 30.27 ng/L (0-15); Troponin 5 2HR Delta 0.27 ABS# (0-10)
[2025-02-11 20:55] LABS: Adenovirus Not Detected (NOT DETECT); Chlamydia Pneumoniae Not Detected (NOT DETECT); Coronavirus 229E,HKU1,NL63,OC4 Not Detected (NOT DETECT); Human Metapneumovirus Not Detected (NOT DETECT); Human Rhinovirus/Enterovirus Not Detected (NOT DETECT); Influenza A Not Detected (NOT DETECT); Influenza A H1 Not Detected (NOT DETECT); Influenza A H1-2009 Not Detected (NOT DETECT); Influenza A H3 Not Detected (NOT DETECT); Influenza B Not Detected (NOT DETECT); Mycoplasma Pneumoniae Not Detected (NOT DETECT); Parainfluenza Virus Type 1 Not Detected (NOT DETECT); Parainfluenza Virus Type 2 Not Detected (NOT DETECT); Parainfluenza Virus Type 3 Not Detected (NOT DETECT); Parainfluenza Virus Type 4 Not Detected (NOT DETECT); Respiratory Syncytial Virus A Not Detected (NOT DETECT); Respiratory Syncytial Virus B Not Detected (NOT DETECT); SARS-COV-2 Not Detected (NOT DETECT)
--- NOTE | 2025-02-11 21:48 | PM.HP ---
Providers/Chief Complaint Admitting Physician: Adrien Kennedy MD Primary Care Provider: Earnest Boswell MD Chief Complaint: SOB History of Present Illness Benji Jensen is a 84 year old male with a past medical history of type 2 diabetes, atrial fibrillation on Eliquis, who presents to [facility] for shortness of breath, lower extremity edema, fevers Patient reports that he is developed increased lower extremity edema, pitting edema, with recent shortness of breath with exertion, no chest pain, no palpitations, no lightheadedness, no dizziness, does report orthopnea, roughly 15 pound weight gain over the last few weeks, increased abdominal distention He tells me over the weekend he started developing fevers as high as 103, no dysuria, hematuria, no cough, no chest pain, no headache, no blurry vision, no neck pain or neck stiffness, possibly reports a couple episodes of diarrhea, no abdominal pain but does report abdominal distention, Review of Systems Const: Reports: fever(s), chills, fatigue and malaise Eyes: Denies: change in vision Card: Denies: chest pain or palpitations Resp: Reports: dyspnea; Denies: productive cough GI: Reports: diarrhea; Denies: abdominal pain, nausea or vomiting : Denies: flank pain, difficulty urinating or dysuria Musc: Denies: neck pain or back pain Skin/Breast: Denies: rash or pruritus Neuro: Denies: headache(s) Endo: Denies: polyuria Medications/Allergies Home Medications ?Medication ?Instructions ?Recorded ?Confirmed ?Last Taken ?Type rmoqfomk-vx-bzjvy 300 mcg-K 60 1 tab PO DAILY 09/05/21 02/09/25 Unknown History mcg-lycop 600 mcg-lutein 300 mcg tablet (Centrum Silver Men) magnesium 200 mg tablet 400 mg PO DAILY PRN 04/13/23 02/09/25 Unknown History potassium gluconate 595 mg (99 mg) 595 mg PO DAILY PRN 04/13/23 02/09/25 Unknown History tablet apixaban 5 mg tablet (Eliquis) 2.5 mg PO BID 04/04/24 02/09/25 Unknown History clobetasol 0.05 % topical ointment topical 06/04/24 02/09/25 Unknown History valsartan 320 mg tablet 320 mg PO DAILY #90 tabs 10/28/24 02/09/25 Unknown Rx glimepiride 2 mg tablet See Rx Instructions .Route 01/03/25 02/09/25 Unknown Rx .COMPLEX #30 tabs lorazepam 1 mg tablet 1 mg PO DAILY PRN sleep #30 tabs 01/16/25 02/09/25 Unknown Rx amlodipine 5 mg tablet 5 mg PO DAILY #30 tabs 01/19/25 02/09/25 Unknown Rx doxycycline hyclate 100 mg capsule 100 mg PO BID #20 caps 02/09/25 02/09/25 Unknown Rx Allergies Allergy/AdvReac Type Severity Reaction Status Date / Time No Known Allergies Allergy Verified 02/11/25 14:18 PFSH Acute PFSH: Medical History Dyslipidemia Type 2 diabetes mellitus Prostate cancer Peripheral neuropathy Atrial fibrillation Hypertension History of nonmelanoma skin cancer Surgical History History of prostate biopsy (09/08/16) MRI directed biopsy of the prostate Status post catheter ablation of atrial fibrillation Family History Other CAD (coronary artery disease) Diabetes Hyperlipidemia Hypertension Suicide Denies family history of Clotting disorder Dementia Psychiatric illness Chronic kidney disease (CKD) Anesthesia complication Bleeding disorder Lung disease Cancer Stroke Social History Smoking and tobacco/nicotine status: unknown if used tobacco/nicotine Second hand smoke exposure: No Alcohol intake: never Vitals/I&O/Wt Last Vital Signs Temp 97.9 F 02/11/25 14:08 Pulse 64 02/11/25 19:12 Resp 18 02/11/25 19:12 BP 163/82 02/11/25 19:12 Pulse Ox 93 02/11/25 19:12 O2 Del Method Room Air 02/11/25 18:43 02/11/25 02/11/25 02/11/25 06:59 14:59 22:59 Output Total 620 / 620 Balance -620 / -620 Weight last 48 hrs Weight 111.13 kg Physical Exam Const: COMMON NORMALS: no acute distress and patient oriented x3 HENMT: COMMON NORMALS: normocephalic HEAD & SCALP: normocephalic Eye: COMMON NORMALS: Equal, round and reactive pupils present Neck/C-Spine: COMMON NORMALS: no lymphadenopathy Resp: COMMON NORMALS: normal respiratory effort, No retractions and No use of accessory muscles AUSCULTATION: crackles Cardio: COMMON NORMALS: regular rate, regular rhythm, S1 normal heart sound present and S2 normal heart sound present RATE: regular rate RHYTHM: regular rhythm HEART SOUNDS: S1 normal heart sound present and S2 normal heart sound present GI: COMMON NORMALS: Normal to inspection, nondistended, normoactive bowel sounds present, Soft to palpation and non-tender Extremity: NARRATIVE EXTREMITY EXAM: 2+ edema Neuro: COMMON NORMALS: patient oriented x3, CN's II-XII intact bilaterally and moves all extremities OTHER: Kernig sign negative, Brudzinski sign negative Psych: COMMON NORMALS: mental status grossly normal Data 02/11/25 18:30 02/11/25 18:30 Micro: Microbiology 02/11/25 19:20 Blood Culture - Preliminary Blood SPECIMEN COLLECTED 02/11/25 18:30 Blood Culture - Preliminary Blood SPECIMEN COLLECTED A&P Assessment and plan (1) Acute CHF: (2) Atrial fibrillation: Qualifiers: Atrial fibrillation type: unspecified chronic Qualified Code(s): I48.20 - Chronic atrial fibrillation, unspecified (3) Type 2 diabetes mellitus: Qualifiers: Diabetes mellitus long-term insulin use: without drilling manager use Diabetes mellitus complication status: with other specified complication Qualified Code(s): E11.69 - Type 2 diabetes mellitus with other specified complication (4) Fever: Plan Acute CHF exacerbation - Likely diastolic CHF - Cardiac echo - Lasix 40 IV twice daily - Monitor creatinine, monitor potassium Fevers? - Source unclear - Blood cultures ordered - UA pending -Respiratory viral panel negative -No significant leukocytosis - CT chest abdomen pelvis - CRP, Pro-Eddie Type 2 diabetes mellitus, low-dose sliding scale Atrial fibrillation, continue Eliquis Full code Eliquis for DVT prophylaxis PDMP PDMP Reviewed: Not Reviewed Attestations Medical Necessity Statement*: Patient requires hospitalization, inpatient, greater than 2 midnights, for acute CHF exacerbation, fevers, Diagnoses Acute CHF I50.9 Chronic atrial fibrillation I48.20 Atrial fibrillation type: unspecified chronic Type 2 diabetes mellitus with other specified complication, without long-term current use of insulin E11.69 Diabetes mellitus long-term insulin use: without long-term use Diabetes mellitus complication status: with other specified complication Fever R50.9
[2025-02-11 22:47] LABS: Erythrocyte Sedimentation Rate 33 mm/hr (0-10)
[2025-02-11 23:08] LABS: Procalcitonin 0.06 ng/mL (0-0.5); Thyroid Stimulating Hormone 5.46 uIU/mL (0.27-4.20)
[2025-02-11] MEDS: amlodipine 5 mg Tablet PO (23:14)
[2025-02-11] MEDS: pantoprazole 40 mg SDV IVP (23:14)
[2025-02-11 23:18] LABS: C Reactive Protein 47.1 mg/L (0.0-4.9)
--- NOTE | 2025-02-11 23:37 | ECG_ITS ---
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 Measurements Intervals [place] Rate: 72 P: 0 MS: 0 QRS: 79 QRSD: 120 T: 85 QT: 394 QTc: 434 Interpretive Statements ATRIAL FIBRILLATION MODERATE INTRAVENTRICULAR CONDUCTION DELAY [110+ ms QRS DURATION] ABNORMAL RHYTHM ECG Compared to ECG 02/11/2025 19:51:22 Intraventricular conduction delay now present Right-axis deviation no longer present Electronically Signed On 02-13-2025 09:05:46 CDT by Gavi Garcia M.D. [email or web address]
[2025-02-12] VITALS (8 sets, daily range): BP systolic 136–164; BP diastolic 79–85; PULSE 66–76; RESP 14–17; TEMP 36.4–36.8; O2SAT 92–96
[2025-02-12 01:36] LABS: Bilirubin Urine Negative (Negative); Blood Urine Negative (Negative); Glucose Urine UA Negative (Normal); Ketones Urine Negative (Negative); Leukocyte Esterase Urine Negative (Negative); Nitrate Urine Negative (Negative); Protein Urine Negative (Negative); Specific Gravity, Urine 1.009 (1.005-1.030); Urine Appearance Clear (CLEAR); Urine Color Yellow (Yellow); Urobilinogen Urine 0.2 mg/dL (Negative); pH Urine 6.5 (5-7)
[2025-02-12 01:41] LABS: Add Urine Microscopic? YES; Bacteria Urine None Seen /hpf; Hyaline Casts Urine 0-4 /lpf; RBC Urine 0-2 /hpf (0-2); Squamous Epithelial Cell Urine 0-5 /hpf (0-5); WBC Urine 0-5 /hpf (0-5)
[2025-02-12 05:09] LABS: Basophils % 0.6 %; Eosinophils # 0.2 10^3/uL (0.0-0.8); Eosinophils % 3.4 %; Hematocrit 36.7 % (37-53); Lymphocytes # 0.9 10^3/uL (0.8-4.8); Lymphocytes % 15.1 %; Mean Corpuscular HGB Conc 33.5 g/dL (30-55); Mean Corpuscular Hemoglobin 30.5 pg (27-33); Mean Corpuscular Volume 91.1 fl (82-101); Mean Platelet Volume 10.3 fL (7.4-10.4); Monocytes # 0.6 10^3/uL (0.2-0.9); Monocytes % 9.1 %; Neutrophils # 4.46 10^3/uL (1.8-7.7); Neutrophils % 71.6 %; Nucleated Red Blood Cells % 0 %; Platelet Count 197 10^3/cmm (157-399); Red Blood Count 4.03 10^6/uL (3.85-5.65); Red Cell Distribution Width 13.4 % (12.1-15.1); White Blood Count 6.23 10^3/uL (3.29-11.43)
[2025-02-12 05:32] LABS: Alanine Aminotransferase 24 U/L (0-41); Albumin Level 3.7 g/dL (3.5-5.2); Alkaline Phosphatase 69 U/L (40-130); Anion Gap 16.8 (5-19); Aspartate Amino Transferase 29 U/L (0-40); Blood Urea Nitrogen 13 mg/dL (8-23); Carbon Dioxide 25 mmol/L (22-29); Chloride 98 mmol/L (98-107); Creatinine Clr Calc Pharmacy 97.2199; Globulin 3.1 g/dL (1.3-4.6); Glucose 211 mg/dL (65-115); Magnesium 1.9 mg/dL (1.7-2.3); Osmolality Calculated 288 mOsm/kg (285-295); Phosphorus 3.3 mg/dL (2.5-4.5); Potassium 3.8 mmol/L (3.5-5.1); Sodium 136 mmol/L (136-145); Total Bilirubin 0.5 mg/dL (0.15-1.2); Total Protein 6.8 g/dL (6.6-8.7)
[2025-02-12 05:39] LABS: Chol HDL Ratio 5.04 mg/dL (1.0-5.00); Cholesterol 136 mg/dL (0-200); HDL Cholesterol 27 mg/dL (60-100); LDL Cholesterol Calculated 77 mg/dL (50-129); LDL HDL Ratio 2.85 RATIO (0.00-3.22); NT Pro B Type Natriuretic Pept 1206 pg/mL (0-450); Triglycerides 159 mg/dL (0-150)
[2025-02-12 05:45] LABS: Estmated Average Glucose 200; Hemoglobin A1C 8.6 % (4.0-6.0)
[2025-02-12 06:31] LABS: Glucose Point of Care 222 mg/dL (70-110)
[2025-02-12] MEDS: piperacillin-tazobactam 3.375 GM in sodium chloride 0.9% (plus) 50 ML IV ×2 (06:46→14:59)
--- NOTE | 2025-02-12 07:26 | PC.PHAR ---
doctor astudillo put all meds on hold yesterday. left them and confirmed them as it doesnt say if its a forever hold or just a short hold
[2025-02-12] MEDS: vancomycin 1,750 MG/350 ML PIGGYBACK 175 MG IV (07:36)
[2025-02-12] MEDS: insulin lispro 100 unit/1 mL SUBCUT ×3 (08:06→18:35)
[2025-02-12] MEDS: apixaban 5 mg Tablet 2.5 MG PO ×2 (08:07→17:11)
[2025-02-12] MEDS: amlodipine 5 mg Tablet PO (08:08)
[2025-02-12] MEDS: FUROsemide 10 mg/mL SDV 4mL 40 MG IVP ×2 (08:08→21:57)
--- NOTE | 2025-02-12 09:00 | CT_ITS ---
WS: [id number] CT CHEST, ABDOMEN AND PELVIS NONCONTRAST HISTORY: fevers TECHNIQUE: Contiguous 5 mm axial imaging performed through the chest, abdomen and pelvis without IV contrast, oral contrast has been provided. Coronal and sagittal reformats chest. Coronal and sagittal reformats through the abdomen and pelvis. All CT scans at [facility] use at least one of these dose optimization techniques: automated exposure control; mA and/or kV adjustment per patient size (includes targeted exams where dose is matched to clinical indication); or iterative reconstruction. CONTRAST: None DLP: 1174.88 mGy.cm COMPARISON: None available. Chest CT: Bilateral scattered groundglass attenuation predominantly in the upper lung sen with sparing of the periphery. Additional smaller areas of groundglass attenuation at the RIGHT costophrenic angle and in the RIGHT middle lobe. No pneumothorax. Small bilateral pleural effusions, RIGHT greater than LEFT. These are simple layering pleural effusions. Mild atherosclerosis aorta. Pulmonary arteries mildly dilated. Small reactive mediastinal and hilar lymph nodes. Mild cardiomegaly. No pericardial effusion. Scattered coronary artery calcifications. Abdomen CT: Normal size liver and spleen. Negative gallbladder. Mild pancreatic atrophy. Normal adrenal glands. Mild atherosclerosis aorta. Mild ectasia and dilatation abdominal aorta 3.7 cm. No periaortic hematoma or fluid. 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 Proximal LEFT common iliac artery aneurysm 2.2 cm. No renal obstruction. Mild perinephric stranding around each kidney. 1.0 cm cyst posterior mid RIGHT kidney. Mild increase in thoracic kyphosis. Stomach and small bowel are negative. No GI tract obstruction. No enteritis. No appendicitis. Distal colon diverticulosis. No acute diverticulitis. No ascites or adenopathy. Pelvic CT: Well-distended urinary bladder. Bilateral fat-containing inguinal canals. Iliac artery calcifications. No decubitus ulcer identified. Degenerative disc disease at L2-3. Sclerosis in the adjacent endplates. No soft tissue inflammation surrounding the vertebral bodies. Facet joint arthropathy in the lumbar spine. CT/[place] [id number] IMPRESSION: 1. Scattered bilateral groundglass opacifications predominantly in the upper l obes. Smaller opacifications at the RIGHT costophrenic angle and RIGHT middle l obe. Differential includes pneumonia/viral pneumonia and hypersensitivity pneum onitis. With no history of smoking less likely respiratory bronchiolitis. 2. No adenopathy. 3. Small bilateral pleural effusions, RIGHT greater than LEFT. 4. Mild cardiomegaly. 5. Infrarenal abdominal aortic aneurysm 3.7 cm. 6. 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 7. LEFT common iliac artery aneurysm 2.2 cm. 8. No renal obstruction. 9. Fat-containing umbilical hernias. 10. Degenerative disc disease in the lumbar spine. No adjacent inflammatory ch anges. 11. Sigmoid diverticulosis without acute diverticulitis.
[2025-02-12 11:07] LABS: Glucose Point of Care 149 mg/dL (70-110)
[2025-02-12 15:59] LABS: Procalcitonin 0.07 ng/mL (0-0.5)
[2025-02-12] MEDS: cefTRIAXone 1,000 mg SDV 1000 MG IVP (17:12)
[2025-02-12 17:15] LABS: Glucose Point of Care 191 mg/dL (70-110)
--- NOTE | 2025-02-12 17:34 | PM.PN ---
Subjective Subjective: Overnight labs and H&P reviewed. Patient states his breathing is better compared to last night. Vitals/I&O/Wt Last Vital Signs Temp 98.2 F 02/12/25 15:54 Pulse 66 02/12/25 16:07 Resp 17 02/12/25 15:54 BP 136/83 02/12/25 15:54 Pulse Ox 96 02/12/25 15:54 O2 Del Method Room Air 02/12/25 15:54 02/12/25 02/12/25 02/12/25 06:59 14:59 22:59 Intake Total 400 / 400 1515 / 1515 25 / 1540 Output Total 1200 / 1820 2400 / 2400 1200 / 3600 Balance -800 / -1420 -885 / -885 -1175 / -2060 Weight last 48 hrs Weight 119.794 kg Weight 117.027 kg Weight 111.13 kg Physical Exam Narrative: General: No acute distress, AO x3 HEENT: PERRLA, pupils bilaterally equal and reactive, pallors not present Chest: Normal vesicular breath sounds, no added sounds, equal good air entry bilaterally CVS: S1-S2 regular, no murmurs, no tachycardia, no gallops, no rubs Abdomen: Soft, nontender, no organomegaly, bowel sounds present Neuro: No focal deficits, no facial deformity, AO x3, power 5/5 in all limbs Extremities: Bilateral lower extremity pitting edema Data 02/12/25 04:50 02/12/25 04:50 Micro: Microbiology 02/11/25 19:20 Blood Culture - Preliminary Blood SPECIMEN COLLECTED 02/11/25 18:30 Blood Culture - Preliminary Blood SPECIMEN COLLECTED A&P Assessment and plan (1) Acute CHF: (2) Atrial fibrillation: Qualifiers: Atrial fibrillation type: unspecified chronic Qualified Code(s): I48.20 - Chronic atrial fibrillation, unspecified (3) Type 2 diabetes mellitus: Qualifiers: Diabetes mellitus senior living insulin use: without senior living use Diabetes mellitus complication status: with other specified complication Qualified Code(s): E11.69 - Type 2 diabetes mellitus with other specified complication (4) Fever: Plan Acute CHF exacerbation - Likely diastolic CHF - Cardiac echo - Lasix 40 IV twice daily - Monitor creatinine, monitor potassium Fevers? - Source unclear - Blood cultures ordered - UA pending -Respiratory viral panel negative -No significant leukocytosis - CT chest abdomen pelvis - CRP, Pro-Eddie Type 2 diabetes mellitus, low-dose sliding scale Atrial fibrillation, continue Eliquis Full code Eliquis for DVT prophylaxis February 12, 2025 CT of the chest showing right sided infiltrates. Per personal interpretation concerning for pneumonia. Currently on vancomycin and Zosyn. De-escalate antibiotics to ceftriaxone 1 g IV every 24 hours and azithromycin 500 mg p.o. daily for 3 days. Check MRSA nasal screen. Respiratory viral panel negative reviewed from yesterday. Check sputum culture and Gram stain if patient able to expectorate. Echocardiogram remains pending, will review. Continue 40 mg IV Lasix every 12 hours. Closely monitor urine output and renal function with diuresis. PDMP PDMP Reviewed: Not Reviewed Attestations Medical Necessity Statement*: Continued IV diuresis for CHF exacerbation. Pending echocardiogram. Coding Level of Care Code Acute Code for [facility] Fwd Diagnoses Acute CHF I50.9 Chronic atrial fibrillation I48.20 Atrial fibrillation type: unspecified chronic Type 2 diabetes mellitus with other specified complication, without long-term current use of insulin E11.69 Diabetes mellitus senior living insulin use: without adjunct faculty for medical terminology use Diabetes mellitus complication status: with other specified complication Fever R50.9
[2025-02-12 17:41] LABS: MRSA PCR OZH (swab) NOT DETECTED (Negative)
[2025-02-12 20:53] LABS: Glucose Point of Care 163 mg/dL (70-110)
[2025-02-12] MEDS: pantoprazole 40 mg SDV IVP (21:57)
--- NOTE | 2025-02-12 22:23 | USCV_ITS ---
Mikey Benji Age: 84 Gender: M : 1940 Exam Date: 02/12/2025 01:15 Ordering Phys: Adrien Kennedy MD Technologist: CASS Exam Location: [facility] [place] Indication: sob, hx DM2, Afib BP: 165 / 100 HR: 64 Rhythm: Atrial fibrillation Technical Quality: Adequate MEASUREMENTS (Male / Female) Normal Values 2D ECHO LV Diastolic Diameter PLAX 3.5 cm 4.2 - 5.9 / 3.9 - 5.3 cm IVS Diastolic Thickness 1.5 cm 0.6 - 1.0 / 0.6 - 0.9 cm IVS Systolic Thickness 1.9 cm LVPW Diastolic Thickness 1.7 cm 0.6 - 1.0 / 0.6 - 0.9 cm LVPW Systolic Thickness 1.9 cm LVOT Diameter 2.1 cm LV Ejection Fraction 2D Teich 62.3 % LV Ejection Fraction MOD 4C 52.2 % LV Ejection Fraction MOD 2C 45.3 % LV Ejection Fraction 2C AL 46.5 % LA Diameter 7.1 cm Aorta at Sinotubular Diameter 3.6 cm IVC Diameter 2.6 cm M-MODE LA Ao Ratio MM 1.3 AV Cusp Separation MM 1.8 cm DOPPLER AV Peak Velocity 169.0 cm/s LVOT Peak Velocity 78.0 cm/s AV Area Cont Eq vti 1.5 cm squared AV Area Cont Eq pk 1.6 cm squared MV Peak Velocity 146.0 cm/s MV Area PHT 4.1 cm squared Mitral E to A Ratio 0.0 TV Peak Velocity 289.3 cm/s TR Peak Velocity 336.0 cm/s TR Peak Gradient 45.2 mmHg TV Peak E Velocity 33.0 cm/s PV Peak Velocity 126.0 cm/s FINDINGS Left Ventricle Normal left ventricular size and systolic function, EF . 62%. No regional wall motion abnormalities. Mild left ventricular hypertrophy. Grade I/IV diastolic dysfunction (abnormal relaxation filling pattern), normal to mildly elevated filling pressures. Right Ventricle Possibly normal RV size and ejection fraction Right Atrium Mildly increased right atrial size. Left Atrium Mildly increased left atrial size. Mitral Valve Thickened mitral valve. Moderate mitral annular calcification. Mild mitral valve regurgitation. Aortic Valve Thickened aortic valve. Mild aortic valve calcification. Tricuspid Valve Mild tricuspid valve regurgitation. Estimated pulmonary artery peak systolic pressure 53 mm ofHg Pulmonic Valve Mild pulmonary valve regurgitation. Pericardium Normal pericardium without effusion. Aorta Normal ascending aorta dimension. IVC Normal IVC dimension with <50% respiratory change of the inferior vena cava. CONCLUSIONS Normal left ventricular size and systolic function, EF . 62%. No regional wall motion abnormalities. Mild left ventricular hypertrophy. Grade I/IV diastolic dysfunction (abnormal relaxation filling pattern), normal to mildly elevated filling pressures. Mild biatrial enlargement. Thickened mitral valve. Moderate mitral annular calcification. Mild mitral valve regurgitation. Mild tricuspid valve regurgitation. Estimated pulmonary artery peak systolic pressure 53 mm ofHg. Mild pulmonary valve regurgitation. There is no pericardial effusion. There are no intracardiac masses. Compared to the study from 11/22/2021 there is some worsening of the pulmonary hypertension. Dr Gavi Garcia MD FACC (Electronically Signed) Final Date: 12 February 2025 21:41 S
[2025-02-13] VITALS (8 sets, daily range): BP systolic 134–167; BP diastolic 55–86; PULSE 64–81; RESP 16–18; TEMP 36.3–36.9; O2SAT 93–98; BMI 32.1
[2025-02-13 05:56] LABS: Basophils # 0.1 10^3/uL (0.0-0.1); Basophils % 0.8 %; Eosinophils # 0.4 10^3/uL (0.0-0.8); Eosinophils % 5.6 %; Hematocrit 38.4 % (37-53); Lymphocytes # 1.2 10^3/uL (0.8-4.8); Lymphocytes % 18.4 %; Mean Corpuscular HGB Conc 32.8 g/dL (30-55); Mean Corpuscular Hemoglobin 29.9 pg (27-33); Mean Platelet Volume 10.4 fL (7.4-10.4); Monocytes # 0.6 10^3/uL (0.2-0.9); Monocytes % 9.1 %; Neutrophils # 4.25 10^3/uL (1.8-7.7); Neutrophils % 65.9 %; Nucleated Red Blood Cells % 0 %; Platelet Count 194 10^3/cmm (157-399); Red Blood Count 4.22 10^6/uL (3.85-5.65); Red Cell Distribution Width 13.5 % (12.1-15.1); White Blood Count 6.45 10^3/uL (3.29-11.43)
[2025-02-13 06:21] LABS: Alanine Aminotransferase 22 U/L (0-41); Albumin Level 3.7 g/dL (3.5-5.2); Alkaline Phosphatase 66 U/L (40-130); Anion Gap 17.6 (5-19); Aspartate Amino Transferase 29 U/L (0-40); Blood Urea Nitrogen 16 mg/dL (8-23); Carbon Dioxide 25 mmol/L (22-29); Chloride 100 mmol/L (98-107); Glucose 201 mg/dL (65-115); Osmolality Calculated 295 mOsm/kg (285-295); Potassium 3.6 mmol/L (3.5-5.1); Sodium 139 mmol/L (136-145); Total Bilirubin 0.6 mg/dL (0.15-1.2); Total Protein 6.7 g/dL (6.6-8.7)
[2025-02-13 06:50] LABS: Glucose Point of Care 221 mg/dL (70-110)
[2025-02-13] MEDS: amlodipine 5 mg Tablet PO (08:20)
[2025-02-13] MEDS: azithromycin 250 mg Tablet 500 MG PO (08:20)
[2025-02-13] MEDS: insulin lispro 100 unit/1 mL SUBCUT ×2 (08:22→18:17)
[2025-02-13] MEDS: apixaban 5 mg Tablet 2.5 MG PO ×2 (08:22→18:17)
[2025-02-13] MEDS: FUROsemide 10 mg/mL SDV 4mL 40 MG IVP (08:22)
--- NOTE | 2025-02-13 10:03 | PC.SOCIAL ---
IMM Update pg 2 of IMM Updated and reviewed w/ patient. Copy provided and copy dated, initialed and placed in chart.
[2025-02-13 11:04] LABS: Glucose Point of Care 156 mg/dL (70-110)
--- NOTE | 2025-02-13 14:53 | PM.DCS ---
Discharge Providers Date of Admission: 02/11/25 21:03 Date of Discharge: February 13, 2025 Attending Provider at Admission: Adrien Kennedy MD Attending Provider at Discharge: Sumi Clifton MD Primary Care Provider: Earnest Boswell MD Diagnoses at Discharge Discharge Diagnosis (1) Acute CHF: Status: Acute (2) Atrial fibrillation: Status: Acute Qualifiers: Atrial fibrillation type: unspecified chronic Qualified Code(s): I48.20 - Chronic atrial fibrillation, unspecified (3) Type 2 diabetes mellitus: Status: Acute Qualifiers: Diabetes mellitus skilled nursing insulin use: without skilled nursing use Diabetes mellitus complication status: with other specified complication Qualified Code(s): E11.69 - Type 2 diabetes mellitus with other specified complication (4) Fever: Status: Acute Reason for Visit Reason for Visit: SOB Discharge Data Studies Completed and Pending Completed Studies During Hospitalization Category [place] [id number] Routine Cat Scan 02/12/25 09:00 Completed XR chest 1V portable [id number] Stat Exams 02/11/25 17:36 Completed CV. echo complete* [id number] Routine Ultrasound 02/12/25 22:23 Completed Pending at discharge Category Date Time Status Blood Culture Stat Lab 02/11/25 19:20 Results Complete Blood Count w/Auto AM LABS Lab 02/14/25 04:00 Ordered Comprehensive Metabolic Panel AM LABS Lab 02/14/25 04:00 Ordered Sputum Culture and Gram Stain Routine Lab 02/12/25 15:18 Uncollected Radiology Impressions Chest X-Ray 02/11/25 17:36 IMPRESSION: No acute findings. Chest/Abdomen/Pelvis CT 02/12/25 09:00 IMPRESSION: 1. Scattered bilateral groundglass opacifications predominantly in the upper lobes. Smaller opacifications at the RIGHT costophrenic angle and RIGHT middle lobe. Differential includes pneumonia/viral pneumonia and hypersensitivity pneumonitis. With no history of smoking less likely respiratory bronchiolitis. 2. No adenopathy. 3. Small bilateral pleural effusions, RIGHT greater than LEFT. 4. Mild cardiomegaly. 5. Infrarenal abdominal aortic aneurysm 3.7 cm. 6. 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 7. LEFT common iliac artery aneurysm 2.2 cm. 8. No renal obstruction. 9. Fat-containing umbilical hernias. 10. Degenerative disc disease in the lumbar spine. No adjacent inflammatory changes. 11. Sigmoid diverticulosis without acute diverticulitis. Laboratory Results WBC 6.45 10^3/uL (3.29-11.43) 02/13/25 05:20 RBC 4.22 10^6/uL (3.85-5.65) 02/13/25 05:20 Hgb 12.60 g/dL (11.27-16.99) 02/13/25 05:20 Hct 38.4 % (37-53) 02/13/25 05:20 MCV 91.0 fl (82-101) 02/13/25 05:20 MCH 29.9 pg (27-33) 02/13/25 05:20 MCHC 32.8 g/dL (30-55) 02/13/25 05:20 RDW 13.5 % (12.1-15.1) 02/13/25 05:20 Plt Count 194 10^3/cmm (157-399) 02/13/25 05:20 MPV 10.4 fL (7.4-10.4) 02/13/25 05:20 Neut % (Auto) 65.9 % 02/13/25 05:20 Lymph % (Auto) 18.4 % 02/13/25 05:20 [place] % (Auto) 9.1 % 02/13/25 05:20 Eos % (Auto) 5.6 % 02/13/25 05:20 Baso % (Auto) 0.8 % 02/13/25 05:20 Neut # (Auto) 4.25 10^3/uL (1.8-7.7) 02/13/25 05:20 Lymph # (Auto) 1.2 10^3/uL (0.8-4.8) 02/13/25 05:20 [place] # (Auto) 0.6 10^3/uL (0.2-0.9) 02/13/25 05:20 Eos # (Auto) 0.4 10^3/uL (0.0-0.8) 02/13/25 05:20 Baso # (Auto) 0.1 10^3/uL (0.0-0.1) 02/13/25 05:20 Nucleated RBC % (auto) 0 % 02/13/25 05:20 Nucleated RBCs # 0.0 /100WBC 02/13/25 05:20 ESR 33 mm/hr (0-10) H 02/11/25 20:22 Sodium 139 mmol/L (136-145) 02/13/25 05:20 Potassium 3.6 mmol/L (3.5-5.1) 02/13/25 05:20 Chloride 100 mmol/L (98-107) 02/13/25 05:20 Carbon Dioxide 25 mmol/L (22-29) 02/13/25 05:20 Anion Gap 17.6 (5-19) 02/13/25 05:20 BUN 16 mg/dL (8-23) 02/13/25 05:20 Creatinine 0.8 mg/dL (0.7-1.2) 02/13/25 05:20 GFR Calculation Not Reportable 02/13/25 05:20 Glucose 201 mg/dL (65-115) H 02/13/25 05:20 POC Glucose 156 mg/dL (70-110) H 02/13/25 10:44 Estimat Average Glucose 200 02/12/25 04:50 Hemoglobin A1c 8.6 % (4.0-6.0) H 02/12/25 04:50 Calculated Osmolality 295 mOsm/kg (285-295) 02/13/25 05:20 Lactic Acid 1.4 mmol/L (0.5-2.2) 02/11/25 18:30 Calcium 9.0 mg/dL (8.5-10.5) 02/13/25 05:20 Phosphorus 3.3 mg/dL (2.5-4.5) 02/12/25 04:50 Magnesium 1.9 mg/dL (1.7-2.3) 02/12/25 04:50 Total Bilirubin 0.6 mg/dL (0.15-1.2) 02/13/25 05:20 AST 29 U/L (0-40) 02/13/25 05:20 ALT 22 U/L (0-41) 02/13/25 05:20 Alkaline Phosphatase 66 U/L (40-130) 02/13/25 05:20 Troponin T Baseline 30 ng/L (0-15) H 02/11/25 18:30 Troponin T 120 Minute 30.27 ng/L (0-15) H 02/11/25 20:22 Delta Troponin T 0.27 ABS# (0-10) 02/11/25 20:22 Troponin T Hi Sens 6Hr 30.70 ng/L (0-15) H 02/12/25 01:19 Troponin T Hi Sens 6Hr Delta 0.70 ng/L (0-12) 02/12/25 01:19 C-Reactive Protein 47.1 mg/L (0.0-4.9) H 02/11/25 18:30 NT-Pro-B Natriuret Pep 1206 pg/mL (0-450) H 02/12/25 04:50 Total Protein 6.7 g/dL (6.6-8.7) 02/13/25 05:20 Albumin 3.7 g/dL (3.5-5.2) 02/13/25 05:20 Globulin 3.0 g/dL (1.3-4.6) 02/13/25 05:20 Triglycerides 159 mg/dL (0-150) H 02/12/25 04:50 Cholesterol 136 mg/dL (0-200) 02/12/25 04:50 LDL Cholesterol, Calc 77 mg/dL (50-129) 02/12/25 04:50 HDL Cholesterol 27 mg/dL (60-100) L 02/12/25 04:50 LDL/HDL Ratio 2.85 RATIO (0.00-3.22) 02/12/25 04:50 Cholesterol/HDL Ratio 5.04 mg/dL (1.0-5.00) H 02/12/25 04:50 Procalcitonin 0.07 ng/mL (0-0.5) 02/12/25 01:19 TSH 5.46 uIU/mL (0.27-4.20) H 02/11/25 18:30 Urine Color Yellow (Yellow) 02/12/25 00:56 Urine Appearance Clear (CLEAR) 02/12/25 00:56 Urine pH 6.5 (5-7) 02/12/25 00:56 Ur Specific [place] 1.009 (1.005-1.030) 02/12/25 00:56 Urine Protein Negative (Negative) 02/12/25 00:56 Urine Glucose (UA) Negative (Normal) 02/12/25 00:56 Urine Ketones Negative (Negative) 02/12/25 00:56 Urine Blood Negative (Negative) 02/12/25 00:56 Urine Nitrate Negative (Negative) 02/12/25 00:56 Urine Bilirubin Negative (Negative) 02/12/25 00:56 Urine Urobilinogen 0.2 mg/dL (Negative) 02/12/25 00:56 Ur Leukocyte Esterase Negative (Negative) 02/12/25 00:56 Urine RBC 0-2 /hpf (0-2) 02/12/25 00:56 Urine WBC 0-5 /hpf (0-5) 02/12/25 00:56 Ur Squamous Epith Cells 0-5 /hpf (0-5) 02/12/25 00:56 Amorphous Sediment Not Reportable 02/12/25 00:56 Urine Bacteria None seen /hpf (NONE) 02/12/25 00:56 Hyaline Casts 0-4 /lpf H 02/12/25 00:56 Nasal MRSA (PCR) Not detected (Negative) 02/12/25 16:20 Adenovirus (PCR) Not detected (NOT DETECT) 02/11/25 18:30 C. pneumoniae DNA (PCR) Not detected (NOT DETECT) 02/11/25 18:30 Coronavirus 229E (PCR) Not detected (NOT DETECT) 02/11/25 18:30 Human Metapneumovir PCR Not detected (NOT DETECT) 02/11/25 18:30 Influenza A (H1) PCR Not detected (NOT DETECT) 02/11/25 18:30 Influ A (H1/09) PCR Not detected (NOT DETECT) 02/11/25 18:30 Influenza A (H3) PCR Not detected (NOT DETECT) 02/11/25 18:30 Influenza Type A (PCR) Not detected (NOT DETECT) 02/11/25 18:30 Influenza Type B (PCR) Not detected (NOT DETECT) 02/11/25 18:30 M. pneumoniae (PCR) Not detected (NOT DETECT) 02/11/25 18:30 Parainfluenza 1 (PCR) Not detected (NOT DETECT) 02/11/25 18:30 Parainfluenza 2 (PCR) Not detected (NOT DETECT) 02/11/25 18:30 Parainfluenza 3 (PCR) Not detected (NOT DETECT) 02/11/25 18:30 Parainfluenza 4 (PCR) Not detected (NOT DETECT) 02/11/25 18:30 RSV Type A (PCR) Not detected (NOT DETECT) 02/11/25 18:30 RSV Type B (PCR) Not detected (NOT DETECT) 02/11/25 18:30 Entero/Rhino (PCR) Not detected (NOT DETECT) 02/11/25 18:30 SARS-CoV-2 (PCR) Not detected (NOT DETECT) 02/11/25 18:30 Vitals Last Vital Signs Temp 98.5 F 02/13/25 12:36 Pulse 74 02/13/25 12:36 Resp 18 02/13/25 12:36 BP 141/82 02/13/25 12:36 Pulse Ox 94 02/13/25 12:36 O2 Del Method Room Air 02/13/25 12:36 Discharge Plan Discharge Patient Disposition: Home Condition: Stable Prescriptions: No Action Centrum Silver Men 300-600-300 mcg tablet 1 tab PO DAILY potassium gluconate 595 mg (99 mg) tablet 595 mg PO DAILY Eliquis 5 mg tablet 2.5 mg PO BID magnesium 200 mg tablet 400 mg PO DAILY valsartan 320 mg tablet 320 mg PO DAILY Qty: 90 3RF glimepiride 2 mg tablet See Rx Instructions .ROUTE .COMPLEX Qty: 30 11RF Dose Instruction: TAKE 1 TABLET BY MOUTH EVERY DAY Rx Instructions: TAKE 1 TABLET BY MOUTH EVERY DAY lorazepam 1 mg tablet 1 mg PO DAILY PRN (Reason: sleep) Qty: 30 5RF amlodipine 5 mg tablet 5 mg PO DAILY Qty: 30 1RF Referrals: Earnest Boswell MD [Primary Care Provider] - Patient Instructions: Opioid Safety Coding Level of Care Code Acute Code for [facility] Fwd Diagnoses Acute CHF I50.9 Chronic atrial fibrillation I48.20 Atrial fibrillation type: unspecified chronic Type 2 diabetes mellitus with other specified complication, without long-term current use of insulin E11.69 Diabetes mellitus extermination inspector insulin use: without extermination inspector use Diabetes mellitus complication status: with other specified complication Fever R50.9
--- NOTE | 2025-02-13 15:22 | PM.PN ---
Subjective Subjective: Continues to feel better. Lower extremity swelling is better. She is afebrile and hemodynamically stable. Net -3.6 L now. Vitals/I&O/Wt Last Vital Signs Temp 98.5 F 02/13/25 12:36 Pulse 74 02/13/25 12:36 Resp 18 02/13/25 12:36 BP 141/82 02/13/25 12:36 Pulse Ox 94 02/13/25 12:36 O2 Del Method Room Air 02/13/25 12:36 02/13/25 02/13/25 02/13/25 06:59 14:59 22:59 Intake Total 150 / 2290 476 / 476 Output Total 1200 / 4800 200 / 200 Balance -1050 / -2510 276 / 276 Weight last 48 hrs Weight 119.748 kg Weight 119.794 kg Weight 117.027 kg Physical Exam Narrative: General: No acute distress, AO x3 HEENT: PERRLA, pupils bilaterally equal and reactive, pallors not present Chest: Normal vesicular breath sounds, no added sounds, equal good air entry bilaterally CVS: S1-S2 regular, no murmurs, no tachycardia, no gallops, no rubs Abdomen: Soft, nontender, no organomegaly, bowel sounds present Neuro: No focal deficits, no facial deformity, AO x3, power 5/5 in all limbs Extremities: Bilateral lower extremity pitting edema is improving today. Data 02/13/25 05:20 02/13/25 05:20 Micro: Microbiology 02/11/25 19:20 Blood Culture - Preliminary Blood NEGATIVE TO DATE 02/11/25 18:30 Blood Culture - Preliminary Blood NEGATIVE TO DATE A&P Assessment and plan (1) Acute CHF: (2) Atrial fibrillation: Qualifiers: Atrial fibrillation type: unspecified chronic Qualified Code(s): I48.20 - Chronic atrial fibrillation, unspecified (3) Type 2 diabetes mellitus: Qualifiers: Diabetes mellitus information technology advisor insulin use: without information technology advisor use Diabetes mellitus complication status: with other specified complication Qualified Code(s): E11.69 - Type 2 diabetes mellitus with other specified complication (4) Fever: Plan Acute CHF exacerbation - Likely diastolic CHF - Cardiac echo - Lasix 40 IV twice daily - Monitor creatinine, monitor potassium Fevers? - Source unclear - Blood cultures ordered - UA pending -Respiratory viral panel negative -No significant leukocytosis - CT chest abdomen pelvis - CRP, Pro-Eddie Type 2 diabetes mellitus, low-dose sliding scale Atrial fibrillation, continue Eliquis Full code Eliquis for DVT prophylaxis February 12, 2025 CT of the chest showing right sided infiltrates. Per personal interpretation concerning for pneumonia. Currently on vancomycin and Zosyn. De-escalate antibiotics to ceftriaxone 1 g IV every 24 hours and azithromycin 500 mg p.o. daily for 3 days. Check MRSA nasal screen. Respiratory viral panel negative reviewed from yesterday. Check sputum culture and Gram stain if patient able to expectorate. Echocardiogram remains pending, will review. Continue 40 mg IV Lasix every 12 hours. Closely monitor urine output and renal function with diuresis. February 13, 2025 Lower extremity edema continues to improve. He is net -3.6 L. Discontinue IV Lasix, transition to oral Lasix 40 mg p.o. daily. Kidney function is stable. Echocardiogram shows an ejection fraction of 62%. No regional wall motion abnormalities. Mild LVH, grade 1 diastolic dysfunction. Thickened mitral valve. Estimated PASP of 53 mmHg. TSH noted to be mildly elevated at 5.46. Check free T3 and T4. Uncontrolled diabetes correlating with an HbA1c of 8.6. Will discuss with patient with regards to addition of Jardiance at the time of discharge.Continue ceftriaxone and azithromycin for management of community-acquired pneumonia. PDMP PDMP Reviewed: Not Reviewed Attestations Medical Necessity Statement*: Transition IV to oral Lasix. May be able to d/c home next 24 hrs if continues to do well with transition Coding Level of Care Code Acute Code for [facility] Fwd Diagnoses Acute CHF I50.9 Chronic atrial fibrillation I48.20 Atrial fibrillation type: unspecified chronic Type 2 diabetes mellitus with other specified complication, without long-term current use of insulin E11.69 Diabetes mellitus information technology advisor insulin use: without information technology advisor use Diabetes mellitus complication status: with other specified complication Fever R50.9
[2025-02-13 17:10] LABS: Glucose Point of Care 204 mg/dL (70-110)
[2025-02-13] MEDS: cefTRIAXone 1,000 mg SDV 1000 MG IVP (18:16)
[2025-02-13 21:08] LABS: Glucose Point of Care 262 mg/dL (70-110)
[2025-02-14 03:53] VITALS: BP 135/50; PULSE 65; RESP 18; TEMP 36.6; O2SAT 94
[2025-02-14 05:32] LABS: Basophils # 0.1 10^3/uL (0.0-0.1); Basophils % 0.9 %; Eosinophils # 0.5 10^3/uL (0.0-0.8); Eosinophils % 7.5 %; Hematocrit 37.9 % (37-53); Lymphocytes # 1.3 10^3/uL (0.8-4.8); Lymphocytes % 20.2 %; Mean Corpuscular HGB Conc 33.2 g/dL (30-55); Mean Corpuscular Volume 93.1 fl (82-101); Monocytes # 0.6 10^3/uL (0.2-0.9); Neutrophils # 4.05 10^3/uL (1.8-7.7); Neutrophils % 62.1 %; Nucleated Red Blood Cells % 0 %; Platelet Count 208 10^3/cmm (157-399); Red Blood Count 4.07 10^6/uL (3.85-5.65); Red Cell Distribution Width 13.4 % (12.1-15.1); White Blood Count 6.53 10^3/uL (3.29-11.43)
[2025-02-14 05:59] LABS: Alanine Aminotransferase 20 U/L (0-41); Albumin Level 3.6 g/dL (3.5-5.2); Alkaline Phosphatase 61 U/L (40-130); Anion Gap 14.8 (5-19); Aspartate Amino Transferase 28 U/L (0-40); Blood Urea Nitrogen 17 mg/dL (8-23); Calcium 8.9 mg/dL (8.5-10.5); Carbon Dioxide 26 mmol/L (22-29); Chloride 101 mmol/L (98-107); Creatinine Clr Calc Pharmacy 95.8086; Globulin 2.9 g/dL (1.3-4.6); Glucose 196 mg/dL (65-115); Osmolality Calculated 293 mOsm/kg (285-295); Potassium 3.8 mmol/L (3.5-5.1); Sodium 138 mmol/L (136-145); Total Bilirubin 0.5 mg/dL (0.15-1.2); Total Protein 6.5 g/dL (6.6-8.7)
[2025-02-14 06:06] LABS: Free T4 Free Thyroxine 1.26 ng/dL (0.82-1.77); T3 Free 2.8 PG/ML (2.0-4.4)
[2025-02-14 06:32] LABS: Glucose Point of Care 204 mg/dL (70-110)
[2025-02-14 08:00] VITALS: BP 143/91; PULSE 66; RESP 16; TEMP 36.8; O2SAT 92
[2025-02-14] MEDS: apixaban 5 mg Tablet 2.5 MG PO (08:58)
[2025-02-14] MEDS: FUROsemide 40 mg Tablet PO (08:58)
[2025-02-14] MEDS: amlodipine 5 mg Tablet PO (08:58)
[2025-02-14] MEDS: insulin lispro 100 unit/1 mL SUBCUT (08:59)
[2025-02-14] MEDS: azithromycin 250 mg Tablet 500 MG PO (08:59)
[2025-02-14 11:31] LABS: Glucose Point of Care 219 mg/dL (70-110)
[2025-02-14 11:53] VITALS: BP 154/84; PULSE 86; RESP 16; TEMP 36.7; O2SAT 95
--- NOTE | 2025-02-14 14:40 | PM.DCS ---
Discharge Providers Date of Admission: 02/11/25 21:03 Date of Discharge: February 14, 2025 Attending Provider at Admission: Adrien Kennedy MD Attending Provider at Discharge: Sumi Clifton MD Primary Care Provider: Earnest Boswell MD Diagnoses at Discharge Discharge Diagnosis (1) Acute CHF: Details from hospital stay: acute diastolic CHF Status: Acute (2) Atrial fibrillation: Status: Acute Qualifiers: Atrial fibrillation type: unspecified chronic Qualified Code(s): I48.20 - Chronic atrial fibrillation, unspecified (3) Type 2 diabetes mellitus: Status: Acute Qualifiers: Diabetes mellitus chcf insulin use: without intermediate frame tender use Diabetes mellitus complication status: with other specified complication Qualified Code(s): E11.69 - Type 2 diabetes mellitus with other specified complication (4) Fever: Status: Acute (5) Pulmonary hypertension: Status: Acute Reason for Visit Reason for Visit: SOB Hospital Course Hospital Course Benji Jensen is a 84 year old male with a past medical history of type 2 diabetes, atrial fibrillation on Eliquis, who presented to [facility] for shortness of breath, lower extremity edema, fevers. CT Imaging showed scattered bilateral groundglass opacifications, particularly in the right costophrenic angle in the right middle lobe. Community-acquired pneumonia was considered likely. He was treated with ceftriaxone and azithromycin, transition to oral Augmentin at the time of discharge. He has small bilateral pleural effusions right greater than left. He had clinical signs of congestive heart failure and was treated with IV diuresis with Lasix. At the time of discharge she has been transitioned to Lasix 40 mg p.o. daily. He has been instructed to measure his weight every day. Should he gain more than 3 pounds in 2 days, instructed to take an extra dose of Lasix. With initiation of diuresis his respiratory status improved and lower extremity edema was better. Echocardiogram showed LVEF of 62%, no regional wall motion abnormalities. Grade 1 diastolic dysfunction was noted. Estimated PASP of 53 mmHg with mild pulmonary valve regurgitation. Compared to 2021 there was mild worsening of the pulmonary hypertension. Recommended to follow-up with cardiology in 1 week of discharge. Additionally follow-up with PCP for graduated compression stockings. Patient states he has tried several [id number] stockings but none appears to give him edema relief. His HbA1c was noted to be uncontrolled at 8.6. In reviewing his past numbers it has been in similar range dating back at least a year or 2. Patient states he is aware of this elevated number, does not wish to add any new oral hypoglycemic agents today. Wants to discuss with his primary care provider before any change. CT of the abdomen also noted incidental infrarenal abdominal aortic aneurysm 3.7 cm, right and left common iliac artery aneurysms 3 and 2.2 cm respectively. Patient is clinically improved at the time of discharge. Physical Exam Narrative: General: No acute distress, AO x3 HEENT: PERRLA, pupils bilaterally equal and reactive, pallors not present Chest: Normal vesicular breath sounds, no added sounds, equal good air entry bilaterally CVS: S1-S2 regular, no murmurs, no tachycardia, no gallops, no rubs Abdomen: Soft, nontender, no organomegaly, bowel sounds present Neuro: No focal deficits, no facial deformity, AO x3, power 5/5 in all limbs Discharge Data Studies Completed and Pending Completed Studies During Hospitalization Category [place] [id number] Routine Cat Scan 02/12/25 09:00 Completed XR chest 1V portable [id number] Stat Exams 02/11/25 17:36 Completed CV. echo complete* [id number] Routine Ultrasound 02/12/25 22:23 Completed Pending at discharge Category Date Time Status Blood Culture Stat Lab 02/11/25 19:20 Results Radiology Impressions Chest X-Ray 02/11/25 17:36 IMPRESSION: No acute findings. Chest/Abdomen/Pelvis CT 02/12/25 09:00 IMPRESSION: 1. Scattered bilateral groundglass opacifications predominantly in the upper lobes. Smaller opacifications at the RIGHT costophrenic angle and RIGHT middle lobe. Differential includes pneumonia/viral pneumonia and hypersensitivity pneumonitis. With no history of smoking less likely respiratory bronchiolitis. 2. No adenopathy. 3. Small bilateral pleural effusions, RIGHT greater than LEFT. 4. Mild cardiomegaly. 5. Infrarenal abdominal aortic aneurysm 3.7 cm. 6. 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 7. LEFT common iliac artery aneurysm 2.2 cm. 8. No renal obstruction. 9. Fat-containing umbilical hernias. 10. Degenerative disc disease in the lumbar spine. No adjacent inflammatory changes. 11. Sigmoid diverticulosis without acute diverticulitis. Laboratory Results WBC 6.53 10^3/uL (3.29-11.43) 02/14/25 05:08 RBC 4.07 10^6/uL (3.85-5.65) 02/14/25 05:08 Hgb 12.60 g/dL (11.27-16.99) 02/14/25 05:08 Hct 37.9 % (37-53) 02/14/25 05:08 MCV 93.1 fl (82-101) 02/14/25 05:08 MCH 31.0 pg (27-33) 02/14/25 05:08 MCHC 33.2 g/dL (30-55) 02/14/25 05:08 RDW 13.4 % (12.1-15.1) 02/14/25 05:08 Plt Count 208 10^3/cmm (157-399) 02/14/25 05:08 MPV 10.0 fL (7.4-10.4) 02/14/25 05:08 Neut % (Auto) 62.1 % 02/14/25 05:08 Lymph % (Auto) 20.2 % 02/14/25 05:08 [place] % (Auto) 9.0 % 02/14/25 05:08 Eos % (Auto) 7.5 % 02/14/25 05:08 Baso % (Auto) 0.9 % 02/14/25 05:08 Neut # (Auto) 4.05 10^3/uL (1.8-7.7) 02/14/25 05:08 Lymph # (Auto) 1.3 10^3/uL (0.8-4.8) 02/14/25 05:08 [place] # (Auto) 0.6 10^3/uL (0.2-0.9) 02/14/25 05:08 Eos # (Auto) 0.5 10^3/uL (0.0-0.8) 02/14/25 05:08 Baso # (Auto) 0.1 10^3/uL (0.0-0.1) 02/14/25 05:08 Nucleated RBC % (auto) 0 % 02/14/25 05:08 Nucleated RBCs # 0.0 /100WBC 02/14/25 05:08 ESR 33 mm/hr (0-10) H 02/11/25 20:22 Sodium 138 mmol/L (136-145) 02/14/25 05:08 Potassium 3.8 mmol/L (3.5-5.1) 02/14/25 05:08 Chloride 101 mmol/L (98-107) 02/14/25 05:08 Carbon Dioxide 26 mmol/L (22-29) 02/14/25 05:08 Anion Gap 14.8 (5-19) 02/14/25 05:08 BUN 17 mg/dL (8-23) 02/14/25 05:08 Creatinine 0.8 mg/dL (0.7-1.2) 02/14/25 05:08 GFR Calculation Not Reportable 02/14/25 05:08 Glucose 196 mg/dL (65-115) H 02/14/25 05:08 POC Glucose 219 mg/dL (70-110) H 02/14/25 11:03 Estimat Average Glucose 200 02/12/25 04:50 Hemoglobin A1c 8.6 % (4.0-6.0) H 02/12/25 04:50 Calculated Osmolality 293 mOsm/kg (285-295) 02/14/25 05:08 Lactic Acid 1.4 mmol/L (0.5-2.2) 02/11/25 18:30 Calcium 8.9 mg/dL (8.5-10.5) 02/14/25 05:08 Phosphorus 3.3 mg/dL (2.5-4.5) 02/12/25 04:50 Magnesium 1.9 mg/dL (1.7-2.3) 02/12/25 04:50 Total Bilirubin 0.5 mg/dL (0.15-1.2) 02/14/25 05:08 AST 28 U/L (0-40) 02/14/25 05:08 ALT 20 U/L (0-41) 02/14/25 05:08 Alkaline Phosphatase 61 U/L (40-130) 02/14/25 05:08 Troponin T Baseline 30 ng/L (0-15) H 02/11/25 18:30 Troponin T 120 Minute 30.27 ng/L (0-15) H 02/11/25 20:22 Delta Troponin T 0.27 ABS# (0-10) 02/11/25 20:22 Troponin T Hi Sens 6Hr 30.70 ng/L (0-15) H 02/12/25 01:19 Troponin T Hi Sens 6Hr Delta 0.70 ng/L (0-12) 02/12/25 01:19 C-Reactive Protein 47.1 mg/L (0.0-4.9) H 02/11/25 18:30 NT-Pro-B Natriuret Pep 1206 pg/mL (0-450) H 02/12/25 04:50 Total Protein 6.5 g/dL (6.6-8.7) L 02/14/25 05:08 Albumin 3.6 g/dL (3.5-5.2) 02/14/25 05:08 Globulin 2.9 g/dL (1.3-4.6) 02/14/25 05:08 Triglycerides 159 mg/dL (0-150) H 02/12/25 04:50 Cholesterol 136 mg/dL (0-200) 02/12/25 04:50 LDL Cholesterol, Calc 77 mg/dL (50-129) 02/12/25 04:50 HDL Cholesterol 27 mg/dL (60-100) L 02/12/25 04:50 LDL/HDL Ratio 2.85 RATIO (0.00-3.22) 02/12/25 04:50 Cholesterol/HDL Ratio 5.04 mg/dL (1.0-5.00) H 02/12/25 04:50 Procalcitonin 0.07 ng/mL (0-0.5) 02/12/25 01:19 TSH 5.46 uIU/mL (0.27-4.20) H 02/11/25 18:30 Free T4 1.26 ng/dL (0.82-1.77) 02/14/25 05:08 Free T3 2.8 PG/ML (2.0-4.4) 02/14/25 05:08 Urine Color Yellow (Yellow) 02/12/25 00:56 Urine Appearance Clear (CLEAR) 02/12/25 00:56 Urine pH 6.5 (5-7) 02/12/25 00:56 Ur Specific [place] 1.009 (1.005-1.030) 02/12/25 00:56 Urine Protein Negative (Negative) 02/12/25 00:56 Urine Glucose (UA) Negative (Normal) 02/12/25 00:56 Urine Ketones Negative (Negative) 02/12/25 00:56 Urine Blood Negative (Negative) 02/12/25 00:56 Urine Nitrate Negative (Negative) 02/12/25 00:56 Urine Bilirubin Negative (Negative) 02/12/25 00:56 Urine Urobilinogen 0.2 mg/dL (Negative) 02/12/25 00:56 Ur Leukocyte Esterase Negative (Negative) 02/12/25 00:56 Urine RBC 0-2 /hpf (0-2) 02/12/25 00:56 Urine WBC 0-5 /hpf (0-5) 02/12/25 00:56 Ur Squamous Epith Cells 0-5 /hpf (0-5) 02/12/25 00:56 Amorphous Sediment Not Reportable 02/12/25 00:56 Urine Bacteria None seen /hpf (NONE) 02/12/25 00:56 Hyaline Casts 0-4 /lpf H 02/12/25 00:56 Nasal MRSA (PCR) Not detected (Negative) 02/12/25 16:20 Adenovirus (PCR) Not detected (NOT DETECT) 02/11/25 18:30 C. pneumoniae DNA (PCR) Not detected (NOT DETECT) 02/11/25 18:30 Coronavirus 229E (PCR) Not detected (NOT DETECT) 02/11/25 18:30 Human Metapneumovir PCR Not detected (NOT DETECT) 02/11/25 18:30 Influenza A (H1) PCR Not detected (NOT DETECT) 02/11/25 18:30 Influ A (H1/09) PCR Not detected (NOT DETECT) 02/11/25 18:30 Influenza A (H3) PCR Not detected (NOT DETECT) 02/11/25 18:30 Influenza Type A (PCR) Not detected (NOT DETECT) 02/11/25 18:30 Influenza Type B (PCR) Not detected (NOT DETECT) 02/11/25 18:30 M. pneumoniae (PCR) Not detected (NOT DETECT) 02/11/25 18:30 Parainfluenza 1 (PCR) Not detected (NOT DETECT) 02/11/25 18:30 Parainfluenza 2 (PCR) Not detected (NOT DETECT) 02/11/25 18:30 Parainfluenza 3 (PCR) Not detected (NOT DETECT) 02/11/25 18:30 Parainfluenza 4 (PCR) Not detected (NOT DETECT) 02/11/25 18:30 RSV Type A (PCR) Not detected (NOT DETECT) 02/11/25 18:30 RSV Type B (PCR) Not detected (NOT DETECT) 02/11/25 18:30 Entero/Rhino (PCR) Not detected (NOT DETECT) 02/11/25 18:30 SARS-CoV-2 (PCR) Not detected (NOT DETECT) 02/11/25 18:30 Vitals Last Vital Signs Temp 98.0 F 02/14/25 11:53 Pulse 86 02/14/25 11:53 Resp 16 02/14/25 11:53 BP 154/84 02/14/25 11:53 Pulse Ox 95 02/14/25 11:53 O2 Del Method Room Air 02/14/25 11:53 Discharge Plan Discharge Patient Disposition: Home Condition: Stable Prescriptions: New furosemide 40 mg Tablet 40 mg PO DAILY@0800 30 Days Qty: 30 0RF amoxicillin-pot clavulanate 875-125 mg tablet 1 tab PO BID 3 Days Qty: 6 0RF Continued Centrum Silver Men 300-600-300 mcg tablet 1 tab PO DAILY potassium gluconate 595 mg (99 mg) tablet 595 mg PO DAILY Eliquis 5 mg tablet 2.5 mg PO BID magnesium 200 mg tablet 400 mg PO DAILY valsartan 320 mg tablet 320 mg PO DAILY Qty: 90 3RF glimepiride 2 mg tablet See Rx Instructions .ROUTE .COMPLEX Qty: 30 11RF Dose Instruction: TAKE 1 TABLET BY MOUTH EVERY DAY Rx Instructions: TAKE 1 TABLET BY MOUTH EVERY DAY lorazepam 1 mg tablet 1 mg PO DAILY PRN (Reason: sleep) Qty: 30 5RF amlodipine 5 mg tablet 5 mg PO DAILY Qty: 30 1RF Discharge Orders: Discharge Order (Routine); Ordered 02/14/25 Ordered By: Sumi Clifton Referrals: Earnest Boswell MD [Primary Care Provider] - 4-7 days (We have notified your physician's clinic of the need for a follow-up appointment to be scheduled. If you have not heard from them within the next 2 business days, please call them directly. ) Discharge Diet: Usual diet Discharge Activity: Resume usual activity Patient Instructions: Congestive Heart Failure, Heart Failure (DC), A-fib (Atrial Fibrillation) (DC), Low-Sodium Diet (DC), Opioid Safety Discharge Attestations Time Spent in Discharge Care*: greater than 30 min Quality Metrics Clinical Quality Measures [ No reported AMI, CVA or VTE this stay] Coding Level of Care Code Acute Code for Chg Fwd Diagnoses Acute CHF I50.9 Chronic atrial fibrillation I48.20 Atrial fibrillation type: unspecified chronic Type 2 diabetes mellitus with other specified complication, without long-term current use of insulin E11.69 Diabetes mellitus intermediate frame tender insulin use: without chcf use Diabetes mellitus complication status: with other specified complication Fever R50.9 Pulmonary hypertension I27.20
== END 2025-02-14 12:30 | disposition home or self-care (01) | DRG 193 ==
LOC: ER 18:44 → ER IP 21:21 → MEDSURG 21:35
PROVIDERS: Emergency Medicine; Admitting Provider Family Medicine; Emergency Provider Student in an Organized Health Care Education/Training Program; PCP Family Medicine; Visit Provider Student in an Organized Health Care Education/Training Program
DX: J18.9 Pneumonia, unspecified organism (principal); I50.31 Acute diastolic (congestive) heart failure; I48.20 Chronic atrial fibrillation, unspecified; I11.0 Hypertensive heart disease with heart failure; E11.42 Type 2 diabetes mellitus with diabetic polyneuropathy; E78.5 Hyperlipidemia, unspecified; I37.1 Nonrheumatic pulmonary valve insufficiency; I27.20 Pulmonary hypertension, unspecified; Z79.01 Long term (current) use of anticoagulants; Z11.52 Encounter for screening for COVID-19; Z79.899 Other long term (current) drug therapy; Z79.84 Long term (current) use of oral hypoglycemic drugs; Z85.46 Personal history of malignant neoplasm of prostate; Z85.828 Personal history of other malignant neoplasm of skin
CPT/HCPCS: 36415; 36416; 71045; 71250; 74176; 80053; 80061; 81001; 82962; 83036; 83605; 83735; 83880; 84100; 84145; 84439; 84443; 84481; 84484; 85025; 85651; 86140; 87040; 87486; 87581; 87633; 93005; 93306; 94664; 96372; 96374; 99285; J0696; J1815; J1940; J2470; J2543; J3372; J9999; Q0144

== ENCOUNTER → 2025-02-24 11:06 | Outpatient (BNVA) | payer MEDICARE, OTHER, SELFPAY | PROVIDERS: PCP Family Medicine; Visit Provider Podiatrist Foot & Ankle Surgery | DX: E11.8 Type 2 diabetes mellitus with unspecified complications (principal); L60.3 Nail dystrophy; I73.9 Peripheral vascular disease, unspecified; E11.69 Type 2 diabetes mellitus with other specified complication | CPT/HCPCS: 11721 ==

== ENCOUNTER → 2025-03-09 13:16 | Outpatient (BNVA) | payer MEDICARE, OTHER, SELFPAY | PROVIDERS: PCP Family Medicine; Visit Provider Family Medicine | DX: E11.69 Type 2 diabetes mellitus with other specified complication (principal) | CPT/HCPCS: 80053; 83036 ==

== ENCOUNTER → 2025-03-17 09:46 | Outpatient (BNVA) | payer MEDICARE, OTHER, SELFPAY | PROVIDERS: PCP Family Medicine; Visit Provider Family Medicine | DX: I50.9 Heart failure, unspecified (principal) | CPT/HCPCS: 80048 ==

== ENCOUNTER → 2025-03-19 11:33 | Outpatient (BNVA) | payer MEDICARE, OTHER, SELFPAY | PROVIDERS: PCP Family Medicine; Visit Provider Family Medicine | DX: E11.69 Type 2 diabetes mellitus with other specified complication (principal) | CPT/HCPCS: 82962 ==

== ENCOUNTER → 2025-03-24 08:41 | Outpatient (BNVA) | payer MEDICARE, OTHER, SELFPAY | PROVIDERS: PCP Family Medicine; Visit Provider Family Medicine | DX: I10 Essential (primary) hypertension (principal) | CPT/HCPCS: 80048 ==

== ENCOUNTER → 2025-03-26 10:08 | Outpatient (BNVA) | payer MEDICARE, OTHER, SELFPAY | PROVIDERS: PCP Family Medicine; Visit Provider Family Medicine | DX: E11.9 Type 2 diabetes mellitus without complications (principal) | CPT/HCPCS: 82962 ==

== ENCOUNTER → 2025-03-30 12:58 | Outpatient (BNVA) | payer MEDICARE, OTHER, SELFPAY | PROVIDERS: PCP Family Medicine; Visit Provider Nurse Practitioner Family | DX: L82.1 Other seborrheic keratosis (principal); I78.8 Other diseases of capillaries; L81.4 Other melanin hyperpigmentation; L57.8 Other skin changes due to chronic exposure to nonionizing radiation; Z08 Encounter for follow-up examination after completed treatment for malignant neoplasm; Z85.828 Personal history of other malignant neoplasm of skin; L57.0 Actinic keratosis | CPT/HCPCS: 17000; 99213 ==

== ENCOUNTER → 2025-04-07 09:01 | Outpatient (BNVA) | payer MEDICARE, OTHER, SELFPAY | PROVIDERS: PCP Family Medicine; Visit Provider Family Medicine | DX: E11.9 Type 2 diabetes mellitus without complications (principal) | CPT/HCPCS: 80048 ==

== ENCOUNTER → 2025-04-14 09:08 | Outpatient (BNVA) | payer MEDICARE, OTHER, SELFPAY | PROVIDERS: PCP Family Medicine; Visit Provider Family Medicine | DX: I50.9 Heart failure, unspecified (principal) | CPT/HCPCS: 80048 ==

== ENCOUNTER → 2025-04-20 08:16 | Outpatient (BNVA) | payer MEDICARE, OTHER, SELFPAY | PROVIDERS: PCP Family Medicine; Visit Provider Family Medicine | DX: I10 Essential (primary) hypertension (principal); C61 Malignant neoplasm of prostate | CPT/HCPCS: 80048; 84153 ==

== ENCOUNTER → 2025-05-04 08:49 | Outpatient (BNVA) | payer MEDICARE, OTHER, SELFPAY | PROVIDERS: PCP Family Medicine; Visit Provider Family Medicine | DX: I50.9 Heart failure, unspecified (principal); E11.69 Type 2 diabetes mellitus with other specified complication; Z86.711 Personal history of pulmonary embolism | CPT/HCPCS: 80048; 83036; 85610 ==

== ENCOUNTER → 2025-05-06 09:51 | Outpatient (BNVA) | payer MEDICARE, OTHER, SELFPAY | PROVIDERS: PCP Family Medicine; Visit Provider Family Medicine | DX: I50.9 Heart failure, unspecified (principal) | CPT/HCPCS: 80048 ==

== ENCOUNTER → 2025-05-12 08:35 | Outpatient (BNVA) | payer MEDICARE, OTHER, SELFPAY | PROVIDERS: PCP Family Medicine; Visit Provider Family Medicine | DX: I50.9 Heart failure, unspecified (principal) | CPT/HCPCS: 80048 ==

== ENCOUNTER → 2025-05-14 11:29 | Outpatient (BNVA) | payer MEDICARE, OTHER, SELFPAY | PROVIDERS: PCP Family Medicine; Visit Provider Family Medicine | DX: I50.9 Heart failure, unspecified (principal) | CPT/HCPCS: 80048 ==

== ENCOUNTER → 2025-05-18 07:56 | Outpatient (BNVA) | payer MEDICARE, OTHER, SELFPAY | PROVIDERS: PCP Family Medicine; Visit Provider Family Medicine | DX: I27.20 Pulmonary hypertension, unspecified (principal); I50.9 Heart failure, unspecified | CPT/HCPCS: 80048 ==

== ENCOUNTER → 2025-05-22 08:36 | Outpatient (BNVA) | payer MEDICARE, OTHER, SELFPAY | PROVIDERS: PCP Family Medicine; Visit Provider Family Medicine | DX: I50.9 Heart failure, unspecified (principal) | CPT/HCPCS: 80048 ==

== ENCOUNTER → 2025-05-25 12:36 | Outpatient (BNVA) | payer MEDICARE, OTHER, SELFPAY | PROVIDERS: PCP Family Medicine; Visit Provider Family Medicine | DX: I50.9 Heart failure, unspecified (principal) | CPT/HCPCS: 80048 ==

== ENCOUNTER → 2025-05-26 11:25 | Outpatient (BNVA) | payer MEDICARE, OTHER, SELFPAY | PROVIDERS: PCP Family Medicine; Visit Provider Podiatrist Foot & Ankle Surgery | DX: E11.69 Type 2 diabetes mellitus with other specified complication (principal); L60.3 Nail dystrophy; E11.8 Type 2 diabetes mellitus with unspecified complications; I73.9 Peripheral vascular disease, unspecified | CPT/HCPCS: 11721 ==

== ENCOUNTER → 2025-05-29 08:24 | Outpatient (BNVA) | payer MEDICARE, OTHER, SELFPAY | PROVIDERS: PCP Family Medicine; Visit Provider Family Medicine | DX: I27.20 Pulmonary hypertension, unspecified (principal); I50.9 Heart failure, unspecified | CPT/HCPCS: 80048 ==

== ENCOUNTER → 2025-06-05 09:09 | Outpatient (BNVA) | payer MEDICARE, OTHER, SELFPAY | PROVIDERS: PCP Family Medicine; Visit Provider Family Medicine | DX: I50.9 Heart failure, unspecified (principal) | CPT/HCPCS: 80048; 83735 ==

== ENCOUNTER → 2025-06-19 09:19 | Outpatient (BNVA) | payer MEDICARE, OTHER, SELFPAY | PROVIDERS: PCP Family Medicine; Visit Provider Family Medicine | DX: I10 Essential (primary) hypertension (principal); I50.9 Heart failure, unspecified | CPT/HCPCS: 80048 ==

== ENCOUNTER → 2025-07-02 10:00 | Outpatient (BNVA) | payer MEDICARE, OTHER, SELFPAY | PROVIDERS: PCP Family Medicine; Visit Provider Family Medicine | DX: I50.9 Heart failure, unspecified (principal); I10 Essential (primary) hypertension | CPT/HCPCS: 80048 ==

== ENCOUNTER → 2025-07-22 09:00 | Outpatient (BNVA) | payer MEDICARE, OTHER, SELFPAY | PROVIDERS: PCP Family Medicine; Visit Provider Family Medicine | DX: I50.9 Heart failure, unspecified (principal) | CPT/HCPCS: 80048 ==

== ENCOUNTER → 2025-08-04 08:47 | Outpatient (BNVA) | payer MEDICARE, OTHER, SELFPAY | PROVIDERS: PCP Family Medicine; Visit Provider Family Medicine | DX: I27.20 Pulmonary hypertension, unspecified (principal); I50.9 Heart failure, unspecified; E11.69 Type 2 diabetes mellitus with other specified complication; C61 Malignant neoplasm of prostate | CPT/HCPCS: 80048 ==

== ENCOUNTER → 2025-08-25 11:16 | Outpatient (BNVA) | payer MEDICARE, OTHER, SELFPAY | PROVIDERS: PCP Family Medicine; Visit Provider Podiatrist Foot & Ankle Surgery | DX: E11.69 Type 2 diabetes mellitus with other specified complication (principal); L60.3 Nail dystrophy; I73.9 Peripheral vascular disease, unspecified | CPT/HCPCS: 11721 ==

== ENCOUNTER → 2025-09-07 08:06 | Outpatient (BNVA) | payer MEDICARE, OTHER, SELFPAY | PROVIDERS: PCP Family Medicine; Visit Provider Family Medicine | DX: I27.20 Pulmonary hypertension, unspecified (principal); I50.9 Heart failure, unspecified | CPT/HCPCS: 80048 ==

== ENCOUNTER → 2025-10-01 10:44 | Outpatient (BNVA) | payer MEDICARE, OTHER, SELFPAY | PROVIDERS: PCP Family Medicine; Visit Provider Nurse Practitioner Family | DX: L85.3 Xerosis cutis (principal); L82.1 Other seborrheic keratosis; L81.4 Other melanin hyperpigmentation; D18.01 Hemangioma of skin and subcutaneous tissue; L57.8 Other skin changes due to chronic exposure to nonionizing radiation; X32.XXXA Exposure to sunlight, initial encounter | CPT/HCPCS: 99213 ==

== ENCOUNTER → 2025-10-02 08:38 | Outpatient (BNVA) | payer MEDICARE, OTHER, SELFPAY | PROVIDERS: PCP Family Medicine; Visit Provider Family Medicine | DX: Z12.5 Encounter for screening for malignant neoplasm of prostate (principal); E11.69 Type 2 diabetes mellitus with other specified complication; I10 Essential (primary) hypertension | CPT/HCPCS: 80048; 83036; G0103 ==

== ENCOUNTER → 2025-10-12 11:30 | Outpatient (BNVA) | payer MEDICARE, OTHER, SELFPAY | PROVIDERS: PCP Family Medicine; Visit Provider Internal Medicine Cardiovascular Disease | DX: I48.91 Unspecified atrial fibrillation (principal); I10 Essential (primary) hypertension; K92.1 Melena; Z79.01 Long term (current) use of anticoagulants | CPT/HCPCS: 99214 ==